=== PATIENT | male | born 1950 | race Two or more races ===

== ENCOUNTER 2018-02-25 07:56 | Inpatient (IN) | payer MEDICARE, MEDICAID ==
[~2018-02-25] VITALS: Ht 182.9 cm; Wt 87.1 kg
[2018-02-25] MEDS ORDERED: Sodium Chloride 500ML 500 ML IV ONE (08:03)
[2018-02-25] MEDS ORDERED: AMIODARONE HCL200 MG ORAL (08:05)
[2018-02-25] MEDS ORDERED: ELIQUIS2.5 MG PO (08:05)
[2018-02-25] MEDS ORDERED: ASPIR 8181 MG ORAL (08:13)
[2018-02-25] MEDS ORDERED: SENNA8.6 M2 PO (08:13)
[2018-02-25] MEDS ORDERED: BUMETANIDE2 MG ORAL (08:13)
[2018-02-25] MEDS ORDERED: SEROQUEL50 MG ORAL (08:13)
[2018-02-25] MEDS ORDERED: BUPROPION HCL100 M1 ORAL (08:13)
[2018-02-25] MEDS ORDERED: POLYETHYLENE GL17 GM ORAL (08:13)
[2018-02-25] MEDS ORDERED: GABAPENTIN300 MG ORAL (08:13)
[2018-02-25] MEDS ORDERED: ISOSORBIDE MONO20 MG PO (08:13)
[2018-02-25] MEDS ORDERED: ZAROXOLYN2.5 MG ORAL (08:13)
[2018-02-25] MEDS ORDERED: LIPITOR80 MG ORAL (08:13)
[2018-02-25] MEDS ORDERED: JANUVIA25 MG ORAL (08:13)
[2018-02-25] MEDS ORDERED: SEROQUEL25 MG ORAL (08:13)
[2018-02-25] MEDS ORDERED: CARVEDILOL25 MG ORAL (08:13)
[2018-02-25] MEDS ORDERED: CLOPIDOGREL75 MG ORAL (08:13)
[2018-02-25] MEDS ORDERED: BREO ELLIPTA 11 EACH IH (08:14)
[2018-02-25 08:32] LABS: BASOPHILS % (AUTO) 0.6 % (0.0-2.0); EOSINOPHILS % (AUTO) 0.8 % (0.0-3.0); HEMATOCRIT 40.7 % (42.0-52.0); HEMOGLOBIN 13.1 G/DL (14.2-18.0); LYMPHOCYTES % (AUTO) 5.8 % (20.0-45.0); MEAN CORPUSCULAR VOLUME 80 FL (80-99); MONOCYTES % (AUTO) 10.4 % (1.0-10.0); NEUTROPHILS % (AUTO) 82.5 % (45.0-75.0); PLATELET COUNT 248 K/UL (150-450); RED BLOOD COUNT 5.07 M/UL (4.70-6.10); RED CELL DISTRIBUTION WIDTH 16.7 % (11.6-14.8); WHITE BLOOD COUNT 15.8 K/UL (4.8-10.8)
[2018-02-25 08:38] LABS: ANION GAP 11 mmol/L (5-15); BLOOD UREA NITROGEN 87 mg/dL (7-18); CALCIUM 9.7 MG/DL (8.5-10.1); CARBON DIOXIDE 32 MMOL/L (21-32); CHLORIDE 96 MMOL/L (98-107); CREATININE 3.4 MG/DL (0.55-1.30); POTASSIUM 3.3 MMOL/L (3.5-5.1); SODIUM 139 MMOL/L (136-145)
[2018-02-25 08:40] LABS: INR 1.3 (0.9-1.1)
[2018-02-25 08:44] VITALS: BP 112/64
[2018-02-25 08:51] LABS: ALANINE AMINOTRANSFERASE 32 U/L (12-78); ALBUMIN 3.2 G/DL (3.4-5.0); ALBUMIN/GLOBULIN RATIO 0.6 (1.0-2.7); ALKALINE PHOSPHATASE 132 U/L (46-116); ASPARTATE AMINO TRANSFERASE 24 U/L (15-37); CKMB 0.8 NG/ML (0.0-3.6); CREATINE KINASE 55 U/L (26-308)
[2018-02-25 08:57] LABS: BILIRUBIN,DIRECT 0.4 MG/DL (0.0-0.3)
[2018-02-25 09:06] LABS: APPEARANCE,URINE CLOUDY; BILIRUBIN, URINE NEGATIVE (NEGATIVE); GLUCOSE, URINE (UA) NEGATIVE (NEGATIVE); KETONES,URINE 1+ (NEGATIVE); LEUKOCYTE ESTERASE ,URINE 1+ (NEGATIVE); NITRITE,URINE NEGATIVE (NEGATIVE); PH,URINE 6.5 (4.5-8.0); PROTEIN,URINE 4+ (NEGATIVE); UROBILINOGEN,URINE NORMAL MG/DL (0.0-1.0)
[2018-02-25 09:13] LABS: COLOR,URINE RED
[2018-02-25] MEDS ORDERED: cefTRIAXone 1 GM in NS 55 ML IVPB ONE (09:15)
[2018-02-25 09:29] VITALS: BP 117/88
--- NOTE | 2018-02-25 09:29 | Emergency Room Report ---
History of Present Illness General Chief Complaint: Altered Level of Consciousness Source: Patient, Medical Record, EMS Present Illness HPI Patient presents from nursing facility with reports of increased lethargy and weakness he was also now witnessed to have increased hematuria Patient himself is sluggish to respond Poor historian There was no reports of vomiting or diarrhea Patient denies any chest pain Unknown regarding fevers There was no reports of any recent rash There was no reports of any recent fall or trauma Allergies: Coded Allergies: No Known Allergies (Unverified , 02/25/18) Patient History Limited by: medical condition Past Medical History: see triage record Pertinent Family History: unable to obtain Reviewed Nursing Documentation: PMH: Agreed; PSxH: Agreed Nursing Documentation-PMH Hx Cardiac Problems: Yes - Left ventricular dysfunction, ICD, CAD Hx Hypertension: Yes History Of Psychiatric Problem: Yes - Mood disorder, anxiety Review of Systems All Other Systems: negative except mentioned in HPI Physical Exam Vital Signs Date Time Temp Pulse Resp B/P (MAP) Pulse Ox O2 Delivery O2 Flow Rate FiO2 02/25/18 07:52 97.0 91 18 111/63 96 Nasal Cannula 4.0 02/25/18 08:43 100 Sp02 EP Interpretation: reviewed, normal General Appearance: no apparent distress Head: normocephalic, atraumatic Eyes: bilateral eye PERRL, bilateral eye EOMI ENT: normal pharynx, no angioedema Neck: supple Respiratory: crackles - Both lower lobes Cardiovascular #1: regular rate, rhythm Gastrointestinal: non tender, soft Musculoskeletal: other - Moves both upper extremities without focal deficit Neurologic: responsive - To verbal and physical stimuli Skin: other - Several skin breakdowns Lymphatic: no adenopathy Medical Decision Making Diagnostic Impression: Primary Impression: Encephalopathy Additional Impressions: UTI (urinary tract infection) Dehydration Leukocytosis ER Course Given the history and presentation multiple differentials considered Including but not limited to neurological, neurosurgical, infectious pathology Patient's white blood cell count is elevated CT imaging shows nonspecific findings with questionable infection CT head did not show any acute disease patient provided with broad-spectrum antibiotics and requires further inpatient care Labs Test 02/25/18 08:10 White Blood Count 15.8 K/UL (4.8-10.8) Red Blood Count 5.07 M/UL (4.70-6.10) Hemoglobin 13.1 G/DL (14.2-18.0) Hematocrit 40.7 % (42.0-52.0) Mean Corpuscular Volume 80 FL (80-99) Mean Corpuscular Hemoglobin 25.8 PG (27.0-31.0) Mean Corpuscular Hemoglobin Concent 32.1 G/DL (32.0-36.0) Red Cell Distribution Width 16.7 % (11.6-14.8) Platelet Count 248 K/UL (150-450) Mean Platelet Volume 8.0 FL (6.5-10.1) Neutrophils (%) (Auto) 82.5 % (45.0-75.0) Lymphocytes (%) (Auto) 5.8 % (20.0-45.0) Monocytes (%) (Auto) 10.4 % (1.0-10.0) Eosinophils (%) (Auto) 0.8 % (0.0-3.0) Basophils (%) (Auto) 0.6 % (0.0-2.0) Prothrombin Time 13.2 SEC (9.30-11.50) Prothromb Time International Ratio 1.3 (0.9-1.1) Activated Partial Thromboplast Time 30 SEC (23-33) Urine Color Red Urine Appearance Cloudy Urine pH 6.5 (4.5-8.0) Urine Specific [place] 1.010 (1.005-1.035) Urine Protein 4+ (NEGATIVE) Urine Glucose (UA) Negative (NEGATIVE) Urine Ketones 1+ (NEGATIVE) Urine Blood 5+ (NEGATIVE) Urine Nitrite Negative (NEGATIVE) Urine Bilirubin Negative (NEGATIVE) Urine Urobilinogen Normal MG/DL (0.0-1.0) Urine Leukocyte Esterase 1+ (NEGATIVE) Urine RBC Tntc /HPF (0 - 0) Urine WBC 5-10 /HPF (0 - 0) Urine Squamous Epithelial Cells Occasional /LPF Urine Bacteria Few /HPF (NONE) Sodium Level 139 MMOL/L (136-145) Potassium Level 3.3 MMOL/L (3.5-5.1) Chloride Level 96 MMOL/L (98-107) Carbon Dioxide Level 32 MMOL/L (21-32) Anion Gap 11 mmol/L (5-15) Blood Urea Nitrogen 87 mg/dL (7-18) Creatinine 3.4 MG/DL (0.55-1.30) Estimat Glomerular Filtration Rate 18.1 mL/min (>60) Glucose Level 277 MG/DL (74-106) Calcium Level 9.7 MG/DL (8.5-10.1) Total Bilirubin 2.0 MG/DL (0.2-1.0) Direct Bilirubin 0.4 MG/DL (0.0-0.3) Aspartate Amino Transf (AST/SGOT) 24 U/L (15-37) Alanine Aminotransferase (ALT/SGPT) 32 U/L (12-78) Alkaline Phosphatase 132 U/L (46-116) Total Creatine Kinase 55 U/L (26-308) Creatine Kinase MB 0.8 NG/ML (0.0-3.6) Creatine Kinase MB Relative Index 1.4 Troponin I 0.013 ng/mL (0.000-0.056) Total Protein 9.0 G/DL (6.4-8.2) Albumin 3.2 G/DL (3.4-5.0) Globulin 5.8 g/dL Albumin/Globulin Ratio 0.6 (1.0-2.7) Rhythm Strip Diag. Results EP Interpretation: yes Rate: 77 Rhythm: NSR, no PVC's, no ectopy Chest X-Ray Diagnostic Results Chest X-Ray Diagnostic Results : Chest X-Ray Ordered: Yes # of Views/Limited/Complete: 1 View Indication: Chest Pain Interpretation: no consolidation, no effusion, no pneumothorax Impression: No acute disease Electronically Signed by: Iveth Pitt DO CT/MRI/US Diagnostic Results CT/MRI/US Diagnostic Results : Impression cT abdomen pelvisImpression: Limited assessment of the GI tract, due to lack of enteric contrast administration Mild to moderate rectal distention by stool, could indicate rectal fecal impaction. There is some rectal wall thickening and presacral edema which could indicate stercoral colitis High attenuation material within the bladder lumen likely indicates blood given stated clinical history of hematuria. No definite renal or ureteral abnormality to indicate source of such. Prostatomegaly Incidental finding right lower pole renal lesion, too small to characterize, most likely benign simple cortical cyst. Borderline splenomegaly Cardiomegaly Colonic diverticulosis. No evidence of diverticulitis Other findings as noted, including degenerative spondylosis, compressive pulmonary atelectatic changes, coronary artery calcifications, pacemaker, likely mitral valve prosthetic device CT head: no acute disease Last Vital Signs Date Time Temp Pulse Resp B/P (MAP) Pulse Ox O2 Delivery O2 Flow Rate FiO2 02/25/18 08:44 97.0 91 22 112/64 99 Nasal Cannula 4.0 02/25/18 08:43 100 Status: improved Disposition: ADMITTED INPATIENT Condition: Serious Referrals: Sebastian Zimmerman MD (PCP) Iveth Pitt DO Feb 25, 2018 09:29
--- NOTE | 2018-02-25 10:12 | Diagnostic Imaging Report ---
Indications: Altered level of consciousness Technique: Spiral acquisitions obtained through the brain. Angled axial and coronal 5 x 5 mm slices were reconstructed. Total dose length product 1502 mGycm. CTDI vol(s) 70 mGy. Dose reduction achieved using automated exposure control Comparison: None. Findings: There is age-related enlargement of the ventricles and extra axial CSF spaces. There is mild periventricular deep white matter low-attenuation consistent with chronic ischemic change. Old lacunar infarct is seen in the left anterior frontal deep white matter. Old lacunar infarcts are also seen in the left cerebellar hemisphere and in the bilateral basal ganglia. Normal shell-white differentiation otherwise. No acute hemorrhage nor edema. No mass effect nor midline shift. The calvarium is intact. The mastoids are clear. The sinuses are clear. The visualized orbits are unremarkable. Impression: Chronic and age-related changes, as described Multiple old lacunar infarcts, as described Negative for acute intracranial bleed or mass effect The CT scanner at [facility] is accredited by the [employer] and the scans are performed using protocols designed to limit radiation exposure to as low as reasonably achievable to attain images of sufficient resolution adequate for diagnostic evaluation.
--- NOTE | 2018-02-25 10:12 | Diagnostic Imaging Report ---
Indication: Abdominal pain, hematuria Technique: Spiral acquisitions obtained through the abdomen and pelvis. No oral contrast utilized, per emergency room physician request No IV contrast utilized, per emergency room physician request.. Multiplanar reconstructions were generated. Total dose length product 1169 mGycm. CTDIvol(s) 18 mGy. Dose reduction achieved using automated exposure control Comparison: None Findings: Lack of enteric contrast limits assessment of the GI tract. The appendix is normal. There is colonic diverticulosis. No evidence of diverticulitis. There is mild distention of the rectum by feces. There is equivocal mild wall thickening of the rectal wall and there is some presacral soft tissue edema. No small bowel distention. No free or loculated intraperitoneal gas or fluid is evident. The distal esophagus, stomach, duodenum are unremarkable. Lack of IV contrast limits assessment of the solid organs. The liver, gallbladder, bile ducts, pancreas are all unremarkable. The spleen is borderline enlarged, measuring 13.4 cm long axis dimension. The adrenals are somewhat bulky and lobulated but no discrete mass demonstrated. The kidneys demonstrate considerable bilateral perinephric fat stranding. The contours are markedly lobulated, particularly the left. A subcentimeter low-attenuation lesion is seen in the lower pole some of the right kidney. No renal or ureteral calculi, hydronephrosis, or hydroureter. No retroperitoneal or mesenteric mass or adenopathy. No pelvic mass or adenopathy. The bladder is empty, contains a Salinas catheter. There is some dense material surrounding the Salinas balloon which appears to be within the bladder lumen and could represent a small amount of blood. The prostate is markedly enlarged, measuring 5.7 cm AP by 6.9 cm transverse by 6.6 cm craniocaudad. The heart is enlarged. Pacemaker wires are demonstrated. Metallic density at the level of the mitral valve is presumably prosthetic in nature. There are also extensive coronary artery calcifications. The lung bases demonstrate compressive atelectatic changes. The bones demonstrate mild degenerative spondylosis changes. Impression: Limited assessment of the GI tract, due to lack of enteric contrast administration Mild to moderate rectal distention by stool, could indicate rectal fecal impaction. There is some rectal wall thickening and presacral edema which could indicate stercoral colitis High attenuation material within the bladder lumen likely indicates blood given stated clinical history of hematuria. No definite renal or ureteral abnormality to indicate source of such. Prostatomegaly Incidental finding right lower pole renal lesion, too small to characterize, most likely benign simple cortical cyst. Borderline splenomegaly Cardiomegaly Colonic diverticulosis. No evidence of diverticulitis Other findings as noted, including degenerative spondylosis, compressive pulmonary atelectatic changes, coronary artery calcifications, pacemaker, likely mitral valve prosthetic device The CT scanner at [facility] is accredited by the [employer] and the scans are performed using protocols designed to limit radiation exposure to as low as reasonably achievable to attain images of sufficient resolution adequate for diagnostic evaluation.
[2018-02-25 10:19] VITALS: BP 121/81
[2018-02-25] MEDS ORDERED: Haloperidol 5mg/ml Inj IM SCH (10:43)
[2018-02-25] MEDS ORDERED: LORazepam Inj 2mg/ml 1ml IM SCH (10:44)
[2018-02-25] MEDS ORDERED: DiphenhydrAMINE 50mg/ml Inj IM SCH (10:44)
[2018-02-25] MEDS ORDERED: Haloperidol 5mg/ml Inj IM PRN ×2 (10:45→16:45)
--- NOTE | 2018-02-25 12:01 | Diagnostic Imaging Report ---
Indication: Chest pain Technique: One view of the chest Comparison: none Findings: Heart is enlarged. There is a left chest AICD. The lungs and pleural spaces are clear. There is evidence of prior CABG. Impression: No acute process
--- NOTE | 2018-02-25 12:47 | History & Physical ---
History and Physical History & Physicial dictated [id number] Sebastian Zimmerman MD Feb 25, 2018 12:47
--- NOTE | 2018-02-25 12:52 | Consultation ---
History of Present Illness General Date patient seen: Feb 25, 2018 Chief Complaint: Altered Level of Consciousness Present Illness HPI 67-year-old male, who has mmp who was admitted for ams. the pt was agitated and confused. the pt is having waxing and waning of consciousness. the pt was agitated and was attempting to come out of bed. the pt was cognitively impairment and was unable to provide hx. Allergies: Coded Allergies: No Known Allergies (Unverified , 02/25/18) Medication History Scheduled Amiodarone Hcl* (Cordarone*), 200 MG ORAL DAILY, (Reported) Apixaban (Eliquis), 2.5 MG PO BID, (Reported) Aspirin* (Aspir 81*), 81 MG ORAL DAILY, (Reported) Atorvastatin (Lipitor), 80 MG ORAL BEDTIME, (Reported) Bumetanide* (Bumetanide*), 2 MG ORAL BID, (Reported) Bupropion Sr* (Bupropion Sr*), 150 MG ORAL BEDTIME, (Reported) Carvedilol* (Carvedilol*), 25 MG ORAL EVERY 12 HOURS, (Reported) Clopidogrel* (Clopidogrel*), 75 MG ORAL DAILY, (Reported) Fluticasone/Vilanterol (Breo Ellipta 100-25 Mcg INH), 1 EACH IH DAILY, (Reported ) Gabapentin* (Gabapentin*), 300 MG ORAL BEDTIME, (Reported) Isosorbide Mononitrate (Isosorbide Mononitrate), 30 MG PO DAILY, (Reported) Metolazone (Metolazone), 2.5 MG ORAL DAILY, (Reported) Polyethylene Glycol 3350* (Polyethylene Glycol 3350*), 17 GM ORAL DAILY, ( Reported) Quetiapine Fumarate (Seroquel), 25 MG ORAL BEDTIME, (Reported) Sennosides (Senna), 8.6 MG PO BEDTIME, (Reported) Sitagliptin* (Januvia*), 50 MG ORAL DAILY, (Reported) Scheduled PRN Quetiapine Fumarate* (Seroquel*), 12.5 MG ORAL TWICE A DAY PRN for Agitation, ( Reported) Patient History Limited by: medical condition History Provided By: Medical Record, PMD Healthcare decision maker ANIA MUNOZ Resuscitation status Advanced Directive on File No Past Medical/Surgical History Past Medical/Surgical History: (1) Dehydration (2) Leukocytosis (3) UTI (urinary tract infection) (4) Encephalopathy Review of Systems Psychiatric: Reports: prior hx, anxiety, hallucinations Physical Exam General Appearance: alert, confused, moderate distress, agitated, combative Last 24 Hour Vital Signs Date Time Temp Pulse Resp B/P (MAP) Pulse Ox O2 Delivery O2 Flow Rate FiO2 02/25/18 10:19 98.0 68 18 121/81 (94) 98 02/25/18 09:50 98.0 99 18 117/88 99 Nasal Cannula 4.0 100 02/25/18 09:29 98.0 99 18 117/88 99 Nasal Cannula 4.0 100 02/25/18 08:44 97.0 91 22 112/64 99 Nasal Cannula 4.0 02/25/18 08:43 91 24 Nasal Cannula 4.0 100 02/25/18 07:52 97.0 91 18 111/63 96 Nasal Cannula 4.0 Laboratory Tests Test 02/25/18 08:10 White Blood Count 15.8 K/UL (4.8-10.8) H Red Blood Count 5.07 M/UL (4.70-6.10) Hemoglobin 13.1 G/DL (14.2-18.0) L Hematocrit 40.7 % (42.0-52.0) L Mean Corpuscular Volume 80 FL (80-99) Mean Corpuscular Hemoglobin 25.8 PG (27.0-31.0) L Mean Corpuscular Hemoglobin Concent 32.1 G/DL (32.0-36.0) Red Cell Distribution Width 16.7 % (11.6-14.8) H Platelet Count 248 K/UL (150-450) Mean Platelet Volume 8.0 FL (6.5-10.1) Neutrophils (%) (Auto) 82.5 % (45.0-75.0) H Lymphocytes (%) (Auto) 5.8 % (20.0-45.0) L Monocytes (%) (Auto) 10.4 % (1.0-10.0) H Eosinophils (%) (Auto) 0.8 % (0.0-3.0) Basophils (%) (Auto) 0.6 % (0.0-2.0) Prothrombin Time 13.2 SEC (9.30-11.50) H Prothromb Time International Ratio 1.3 (0.9-1.1) H Activated Partial Thromboplast Time 30 SEC (23-33) Urine Color Red Urine Appearance Cloudy Urine pH 6.5 (4.5-8.0) Urine Specific [place] 1.010 (1.005-1.035) Urine Protein 4+ (NEGATIVE) H Urine Glucose (UA) Negative (NEGATIVE) Urine Ketones 1+ (NEGATIVE) H Urine Blood 5+ (NEGATIVE) H Urine Nitrite Negative (NEGATIVE) Urine Bilirubin Negative (NEGATIVE) Urine Urobilinogen Normal MG/DL (0.0-1.0) Urine Leukocyte Esterase 1+ (NEGATIVE) H Urine RBC Tntc /HPF (0 - 0) H Urine WBC 5-10 /HPF (0 - 0) H Urine Squamous Epithelial Cells Occasional /LPF Urine Bacteria Few /HPF (NONE) Sodium Level 139 MMOL/L (136-145) Potassium Level 3.3 MMOL/L (3.5-5.1) L Chloride Level 96 MMOL/L (98-107) L Carbon Dioxide Level 32 MMOL/L (21-32) Anion Gap 11 mmol/L (5-15) Blood Urea Nitrogen 87 mg/dL (7-18) H Creatinine 3.4 MG/DL (0.55-1.30) H Estimat Glomerular Filtration Rate 18.1 mL/min (>60) Glucose Level 277 MG/DL (74-106) H Calcium Level 9.7 MG/DL (8.5-10.1) Total Bilirubin 2.0 MG/DL (0.2-1.0) H Direct Bilirubin 0.4 MG/DL (0.0-0.3) H Aspartate Amino Transf (AST/SGOT) 24 U/L (15-37) Alanine Aminotransferase (ALT/SGPT) 32 U/L (12-78) Alkaline Phosphatase 132 U/L (46-116) H Total Creatine Kinase 55 U/L (26-308) Creatine Kinase MB 0.8 NG/ML (0.0-3.6) Creatine Kinase MB Relative Index 1.4 Troponin I 0.013 ng/mL (0.000-0.056) Total Protein 9.0 G/DL (6.4-8.2) H Albumin 3.2 G/DL (3.4-5.0) L Globulin 5.8 g/dL Albumin/Globulin Ratio 0.6 (1.0-2.7) L Height (Feet): 6 Weight (Pounds): 170 Medications Current Medications Medications (Trade) Dose Ordered Sig/Jessica Route PRN Reason Start Time Stop Time Status Last Admin Dose Admin Amiodarone HCl (Cordarone) 200 mg DAILY ORAL 02/26/18 09:00 03/28/18 08:59 Aspirin (Ecotrin) 81 mg DAILY ORAL 02/26/18 09:00 03/28/18 08:59 Atorvastatin Calcium (Lipitor) 80 mg BEDTIME ORAL 02/25/18 21:00 03/27/18 20:59 Bupropion HCl (Wellbutrin SR) 150 mg BEDTIME ORAL 02/25/18 21:00 03/27/18 20:59 Carvedilol (Coreg) 25 mg EVERY 12 HOURS ORAL 02/25/18 21:00 03/27/18 20:59 Clopidogrel Bisulfate (Plavix) 75 mg DAILY ORAL 02/26/18 09:00 03/28/18 08:59 Dextrose (Dextrose 50%) 25 ml Q30M PRN IV Hypoglycemia 02/25/18 13:00 03/27/18 12:59 Dextrose (Dextrose 50%) 50 ml Q30M PRN IV Hypoglycemia 02/25/18 13:00 03/27/18 12:59 Fluticasone/ Vilanterol (Breo Ellipta 100/25) 1 puff DAILY INH 02/26/18 09:00 03/28/18 08:59 Gabapentin (Neurontin) 300 mg BEDTIME ORAL 02/25/18 21:00 03/27/18 20:59 Haloperidol Lactate (Haldol) 5 mg Q6H PRN IM Agitation 02/25/18 10:45 03/27/18 10:44 Insulin Aspart (NovoLOG) BEFORE MEALS AND HS SUBQ 02/25/18 16:30 03/27/18 16:29 Polyethylene Glycol (Miralax) 17 gm DAILY ORAL 02/26/18 09:00 03/28/18 08:59 Sitagliptin Phosphate (Januvia) 25 mg DAILY ORAL 02/26/18 09:00 03/28/18 08:59 Assessment/Plan Problem List: (1) Encephalopathy ICD Codes: G93.40 - Encephalopathy, unspecified SNOMED: [id number] Assessment/Plan the pt received a cocktail Seroquel 25mg qhs Seroquel Dwight Moreno MD Feb 25, 2018 12:51
--- NOTE | 2018-02-25 13:15 | Consultation ---
Consult Note Assessment/Plan Renal consult dictated # [id number] Isacc Ryder MD Feb 25, 2018 13:15
--- NOTE | 2018-02-25 15:43 | Infectious Diseases Prog Note ---
Assessment/Plan Assessment/Plan Full consult dictated: A) 1) sepsis, ams, leukocytosis 2) uti, + ua 3) chest x-ray - negative 4) allergies - nkda 5) pmh noted P) 1) zosyn and doxycycline 2) check labs, cultures and f/u chest x-ray 3) thank you Subjective Allergies: Coded Allergies: No Known Allergies (Unverified , 02/25/18) Objective Vital Signs Last 24 Hour Vital Signs Date Time Temp Pulse Resp B/P (MAP) Pulse Ox O2 Delivery O2 Flow Rate FiO2 02/25/18 13:43 Nasal Cannula 2.0 02/25/18 10:19 98.0 68 18 121/81 (94) 98 02/25/18 09:50 98.0 99 18 117/88 99 Nasal Cannula 4.0 100 02/25/18 09:29 98.0 99 18 117/88 99 Nasal Cannula 4.0 100 02/25/18 08:44 97.0 91 22 112/64 99 Nasal Cannula 4.0 02/25/18 08:43 91 24 Nasal Cannula 4.0 100 02/25/18 07:52 97.0 91 18 111/63 96 Nasal Cannula 4.0 Height (Feet): 6 Height (Inches): 0.00 Weight (Pounds): 170 Laboratory Tests Test 02/25/18 08:10 White Blood Count 15.8 K/UL (4.8-10.8) H Red Blood Count 5.07 M/UL (4.70-6.10) Hemoglobin 13.1 G/DL (14.2-18.0) L Hematocrit 40.7 % (42.0-52.0) L Mean Corpuscular Volume 80 FL (80-99) Mean Corpuscular Hemoglobin 25.8 PG (27.0-31.0) L Mean Corpuscular Hemoglobin Concent 32.1 G/DL (32.0-36.0) Red Cell Distribution Width 16.7 % (11.6-14.8) H Platelet Count 248 K/UL (150-450) Mean Platelet Volume 8.0 FL (6.5-10.1) Neutrophils (%) (Auto) 82.5 % (45.0-75.0) H Lymphocytes (%) (Auto) 5.8 % (20.0-45.0) L Monocytes (%) (Auto) 10.4 % (1.0-10.0) H Eosinophils (%) (Auto) 0.8 % (0.0-3.0) Basophils (%) (Auto) 0.6 % (0.0-2.0) Prothrombin Time 13.2 SEC (9.30-11.50) H Prothromb Time International Ratio 1.3 (0.9-1.1) H Activated Partial Thromboplast Time 30 SEC (23-33) Urine Color Red Urine Appearance Cloudy Urine pH 6.5 (4.5-8.0) Urine Specific [place] 1.010 (1.005-1.035) Urine Protein 4+ (NEGATIVE) H Urine Glucose (UA) Negative (NEGATIVE) Urine Ketones 1+ (NEGATIVE) H Urine Blood 5+ (NEGATIVE) H Urine Nitrite Negative (NEGATIVE) Urine Bilirubin Negative (NEGATIVE) Urine Urobilinogen Normal MG/DL (0.0-1.0) Urine Leukocyte Esterase 1+ (NEGATIVE) H Urine RBC Tntc /HPF (0 - 0) H Urine WBC 5-10 /HPF (0 - 0) H Urine Squamous Epithelial Cells Occasional /LPF Urine Bacteria Few /HPF (NONE) Sodium Level 139 MMOL/L (136-145) Potassium Level 3.3 MMOL/L (3.5-5.1) L Chloride Level 96 MMOL/L (98-107) L Carbon Dioxide Level 32 MMOL/L (21-32) Anion Gap 11 mmol/L (5-15) Blood Urea Nitrogen 87 mg/dL (7-18) H Creatinine 3.4 MG/DL (0.55-1.30) H Estimat Glomerular Filtration Rate 18.1 mL/min (>60) Glucose Level 277 MG/DL (74-106) H Calcium Level 9.7 MG/DL (8.5-10.1) Total Bilirubin 2.0 MG/DL (0.2-1.0) H Direct Bilirubin 0.4 MG/DL (0.0-0.3) H Aspartate Amino Transf (AST/SGOT) 24 U/L (15-37) Alanine Aminotransferase (ALT/SGPT) 32 U/L (12-78) Alkaline Phosphatase 132 U/L (46-116) H Total Creatine Kinase 55 U/L (26-308) Creatine Kinase MB 0.8 NG/ML (0.0-3.6) Creatine Kinase MB Relative Index 1.4 Troponin I 0.013 ng/mL (0.000-0.056) Total Protein 9.0 G/DL (6.4-8.2) H Albumin 3.2 G/DL (3.4-5.0) L Globulin 5.8 g/dL Albumin/Globulin Ratio 0.6 (1.0-2.7) L Current Medications Medications (Trade) Dose Ordered Sig/Jessica Route PRN Reason Start Time Stop Time Status Last Admin Dose Admin Amiodarone HCl (Cordarone) 200 mg DAILY ORAL 02/26/18 09:00 03/28/18 08:59 Atorvastatin Calcium (Lipitor) 80 mg BEDTIME ORAL 02/25/18 21:00 03/27/18 20:59 Bupropion HCl (Wellbutrin SR) 150 mg BEDTIME ORAL 02/25/18 21:00 03/27/18 20:59 Carvedilol (Coreg) 25 mg EVERY 12 HOURS ORAL 02/25/18 21:00 03/27/18 20:59 Dextrose (Dextrose 50%) 25 ml Q30M PRN IV Hypoglycemia 02/25/18 13:00 03/27/18 12:59 Dextrose (Dextrose 50%) 50 ml Q30M PRN IV Hypoglycemia 02/25/18 13:00 03/27/18 12:59 Fluticasone/ Vilanterol (Breo Ellipta 100/25) 1 puff DAILY INH 02/26/18 09:00 03/28/18 08:59 Gabapentin (Neurontin) 300 mg BEDTIME ORAL 02/25/18 21:00 03/27/18 20:59 Haloperidol Lactate (Haldol) 5 mg Q6H PRN IM Agitation 02/25/18 10:45 03/27/18 10:44 Insulin Aspart (NovoLOG) BEFORE MEALS AND HS SUBQ 02/25/18 16:30 03/27/18 16:29 Piperacillin Sod/ Tazobactam Sod 3.375 gm/Dextrose 100 ml @ 25 mls/hr EVERY 12 HOURS IVPB 02/25/18 21:00 03/02/18 20:59 UNV Polyethylene Glycol (Miralax) 17 gm DAILY ORAL 02/26/18 09:00 03/28/18 08:59 Sitagliptin Phosphate (Januvia) 25 mg DAILY ORAL 02/26/18 09:00 03/28/18 08:59 Edith Jeffery MD Feb 25, 2018 15:43
[2018-02-25 16:00] VITALS: BP 102/65
[2018-02-25] MEDS ORDERED: NovoLOG Insulin Flexpen SUBQ SCH (16:30)
--- NOTE | 2018-02-25 16:37 | Diagnostic Imaging Report ---
Indication: Acute renal failure Technique: Grayscale and duplex images of the kidneys, retroperitoneum, and bladder were obtained. Comparison: Abdomen pelvis CT 02/25/2018 Findings: Exam is limited. Patient was reportedly difficult to scan due to restlessness Right kidney measures 11.2 cm in length. Left kidney measures 11 cm in length. Both kidneys demonstrate normal echogenicity. Both kidneys demonstrate contour lobulation. There is what appears to be an echogenic focus in the lower pole of the right kidney. There is a nonspecific low-attenuation area in the right kidney at the same location, so this could represent a small angiomyolipoma. No hydronephrosis. No other focal abnormality.. Nonvisualized inferior vena cava. Bladder contains a Salinas catheter. Bladder volume calculated at 190 mL despite Salinas catheter. Debris, presumably blood, is seen within the bladder lumen. The prostate is markedly enlarged, calculated volume of 111 mL. Impression: Somewhat limited exam, as described. 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 Debris, likely blood, within the bladder lumen, given known history of hematuria and recent findings on CT Marked prostatomegaly 190 mL urinary bladder volume despite the presence of a Salinas catheter
[2018-02-25] MEDS: NovoLOG Insulin Flexpen SUBQ SCH ×2 (17:57→23:04)
[2018-02-25] MEDS ORDERED: Eliquis 2.5mg tablet ORAL SCH (18:00)
[2018-02-25 20:00] VITALS: BP_SYST 103; BP_SYST 141; BP_DIAS 60; BP_DIAS 79
--- NOTE | 2018-02-25 20:00 | Consultation ---
DATE OF CONSULTATION: 02/25/2018 NEPHROLOGY CONSULTATION CONSULTING PHYSICIAN: Isacc Ryder M.D. REFERRING PHYSICIAN: Sebastian Zimmerman M.D. REASON FOR CONSULTATION: Acute renal failure. HISTORY OF PRESENT ILLNESS: This is a 67-year-old male, who is unable to provide any history. I was asked to see him for his renal failure. His BUN and creatinine are 87 and 3.4 as of today. The patient has history of chronic kidney disease, and followed by Dr. Hurd at [facility]. The patient was admitted for increased lethargy and weakness. He has also history of severe cardiomyopathy, ejection fraction about 11% per Dr. Zimmerman. PAST MEDICAL HISTORY: History of coronary disease, ICD placement, history of hypertension, mood disorder, and anxiety. MEDICATIONS: Reviewed in the EMR. SOCIAL HISTORY: Unobtainable. ALLERGIES: No known drug allergies. REVIEW OF SYSTEMS: Unobtainable. PHYSICAL EXAMINATION: GENERAL: The patient is a 67-year-old male, nonverbal at this point although he is awake. VITAL SIGNS: Blood pressure 121/81, pulse 68, temperature 98 degrees, and respirations 18. HEENT: Somewhat pale conjunctivae. Anicteric sclerae. NECK: Supple. LUNGS: Clear to auscultation. HEART: S1 and S2 without murmurs or rubs. ABDOMEN: Soft and nontender. EXTREMITIES: No cyanosis or edema. LABORATORY FINDINGS: Chemistry panel shows serum sodium 139, potassium 3.3, chloride 96, BUN is 87, creatinine 3.4, glucose 277, and albumin is 3.2. CBC shows a WBC of 15,800, hematocrit is 40.7, hemoglobin is 13.1, and platelets 248,000. UA shows too numerous to count RBCs and 5 to 10 WBCs per high-power field with 4+ protein. ASSESSMENT: This is a 67-year-old male who was admitted with change in mental status and acute encephalopathy. He has acute renal failure on top of chronic kidney disease. His acute renal failure may be from prerenal azotemia. Other cardiorenal syndrome cannot be completely excluded. Other possibility such obstruction less likely needs to be ruled out. The patient has some tremors, may be from the Salinas catheter. PLAN: I would hydrate the patient gently. Urine sodium and urine creatinine will be ordered to calculate the fractional excretion of sodium. The patient's renal ultrasound will be obtained to make sure the patient has renal obstruction, also to record the echogenicity of the kidneys. Further recommendations will be made based on those results. Thank you very much, Dr. Zimmerman for this consultation. Isacc Ryder M.D. DR: TALA JOB#: [id number] CC:
--- NOTE | 2018-02-25 20:45 | History and Physical Report ---
DATE OF ADMISSION: 02/25/2018 REASON FOR ADMISSION: Altered mental status and severe hematuria with recent falls. HISTORY OF PRESENT ILLNESS: This is an unfortunate 67-year-old male with history of CHF with ejection fraction of 11%, coronary artery disease, status post CABG, status post defibrillator, hypertension, uncontrolled diabetes, CKD stage 4, recent NSTEMI, status post cardiac catheterization on 11/29/2017 with PCI and stent of ostium, circumflex stenosis, who was brought in by ambulance for altered mental status. The patient has been very confused over the last few days and [facility]. He has had hallucinations. He was recently seen by Psychiatry and started on Depakote for mood disorder. The patient is on Bumex and metolazone for CHF and has not been eating or drinking much. His creatinine is elevated at 3.4 with baseline creatinine of 2.2 to 2.4 on recent discharge from [facility]. His BUN is at 87. He has a Salinas with severe gross hematuria. REVIEW OF SYSTEMS: Twelve-point review of systems is not obtainable because of the patient's confusion. PAST MEDICAL HISTORY: Includes CHF with ejection fraction of 11%, status post AICD, toxic metabolic encephalopathy, coronary artery disease, history of NSTEMI, history of CABG, hypertension, paroxysmal atrial fibrillation, hyperlipidemia, CKD with baseline creatinine of 2.2 to 2.4, diabetes type 2, congestive hepatopathy, major depressive disorder, mood disorder, gout. PAST SURGICAL HISTORY: None. SOCIAL HISTORY: The patient is currently residing at [facility] facility, [facility]. He does not smoke, drink alcohol, or use any drugs. He has a conservator named Haseeb. MEDICATIONS: Reviewed in [facility]. ALLERGIES: No known drug allergies. PHYSICAL EXAMINATION: VITAL SIGNS: Temperature is 98, pulse is 68, respiratory rate 18, blood pressure 121/81, O2 saturation is 98%. GENERAL: The patient to very confused. He is alert, awake, and oriented x0. He is awake. He does not know where he is nor does he knows name. LABORATORY DATA: CBC, white count 15.8, hemoglobin 13.1, hematocrit of 40.7, and platelet count 248,000. BMP, sodium 139, potassium 3.8, chloride is 96, CO2 is 32, BUN is 87, creatinine 3.4, total bilirubin of 2, alkaline phosphatase is 132. CK-MB is 2.8. AST is 24, ALT is 32. Troponin is 0.013. INR is 1.3. UA, 4+ protein, 1+ ketones, 5+ blood, too many to count rbc's. CT of abdomen and pelvis, [id number] rectal distention by stool, could have fecal impaction, prostate megaly, cardiomegaly, diverticulosis. CT of brain, chronic multiple old lacunar infarcts. Chest x-ray, no acute process. ASSESSMENT: 1. Metabolic encephalopathy secondary to uremia and possible infection. 2. Chronic CHF with ejection fraction of 11%, status post ICD. 3. Acute on chronic kidney failure with baseline creatinine of 2.2 to 2.4. 4. Negative myoclonus. 5. Coronary artery disease. 6. History of NSTEMI. 7. History of CABG. 8. Hypertension. 9. Paroxysmal atrial fibrillation. 10. Dyslipidemia. 11. Diabetes type 2. 12. Congestive hepatopathy. 13. Major depressive disorder. 14. Gout. 15. Hematuria. PLAN: 1. The patient to be admitted to telemetry. 2. We would hold Bumex and metolazone given elevated creatinine. 3. Urology consult for hematuria. 4. Monitor hemoglobin and hematocrit. 5. Hold Eliquis given hematuria. 6. ID consult because of leukocytosis. 7. Psychiatry consult for agitation. We will avoid Ativan because of metabolic encephalopathy, instead we would give Haldol p.r.n. agitation. 8. Discussed with DPOA at bedside the patient's poor overall status, and he appears to understand and appears to be agreeable to hospice, which I will have a social organization professor help sort out back at the [facility] facility. 9. Swallow evaluation ordered given metabolic encephalopathy. 10. Code status is DNR as indicated by POLST. 11. No DVT prophylaxis because of the patient's hematuria. Sebastian Zimmerman MD DR: Louise JOB#: [id number] CC: RUSLAN
[2018-02-25] MEDS ORDERED: BuPROPion SR 150mg tab ORAL SCH ×2 (21:00)
[2018-02-25] MEDS ORDERED: Atorvastatin 80mg tab ORAL SCH (21:00)
[2018-02-25] MEDS ORDERED: Carvedilol 25mg Tab ORAL SCH (21:00)
--- NOTE | 2018-02-25 21:00 | Consultation ---
DATE OF CONSULTATION: 02/25/2018 INFECTIOUS DISEASE CONSULT: CONSULTING PHYSICIAN: Edith Jeffery M.D. ATTENDING PHYSICIAN: Sebastian Zimmerman M.D. REFERRING PHYSICIAN: Sebastian Zimmerman M.D. REASON FOR CONSULTATION: Sepsis, UTI, leukocytosis, altered mental status. CHIEF COMPLAINT: The patient's chief complaint coming in to the hospital is encephalopathy, hematuria, UTI, sepsis. HISTORY OF PRESENT ILLNESS: This is a 67-year-old male, who has history of recent hospitalizations for cardiac disease. The patient was at the [facility], was noted to have worsening mental status and lethargy. It is unclear if the patient has underlying history of encephalopathy. The patient with altered mental status, was noted to have a positive urinalysis and likely has urinary tract infection. The patient also looks like he is septic with altered mental status, elevated heart rate as high as 99, and respiratory rate as high as 24. The patient's chest x-ray was negative. The patient has SIRS criteria. Infectious Disease consultation was requested for antibiotic management. The patient was placed on doxycycline and Zosyn. The patient is at risk for also aspiration; however, chest x-ray is negative. Cultures are pending. MAR was noted. Orders were noted. Notes were reviewed. Urine culture and blood cultures were ordered. Case communicated with Dr. Sebastian Zimmerman. The patient cannot give any further history. The patient currently is on telemetry unit. I also discussed the case with nursing staff. REVIEW OF SYSTEMS: CONSTITUTIONAL: The patient has generalized fatigue, weakness, encephalopathy, altered mental status, and responds to certain extent in my limited communication. HEAD AND NECK: No head pain or neck stiffness, but poor historian. CARDIAC: He is not on pressors. GASTROINTESTINAL: No nausea, vomiting, or diarrhea. No abdominal pain. PULMONARY: No shortness of breath, congestion, hemoptysis, or secretions. He has elevated respiratory rate. GENITOURINARY: He does have a Salinas. No obvious CVA tenderness. SKIN: No rash or itching. EXTREMITIES: No extremity pain. NEUROLOGIC: No seizures. He has generalized fatigue and weakness. He is lethargic and encephalopathic. Otherwise, review of systems is limited in this patient. He has a Salinas, but no central line. PAST MEDICAL HISTORY: Includes the following. Obtained from the records and the chart because the patient is a poor historian. The patient has a past medical history of chronic systolic and diastolic CHF, history of 11% ejection fraction, history of weakness, history of CAD, history of non STEMI, history of CABG, history of hypertension, history of dyslipidemia, chronic kidney disease, paroxysmal atrial fibrillation, anemia, elevated creatinine, diabetes, hepatopathy, and major depression. He is on antidepressants I think. Again, diabetes and hypertension as mentioned. ALLERGIES: No known drug allergies. No antibiotic allergies. FAMILY HISTORY: Per the records, there is no mention of diabetes, cancer, or tuberculosis in the family. SOCIAL HISTORY: Negative for smoking, alcohol, or drug abuse. MEDICATIONS: Upon reviewing the MAR, the patient is on following medications. He is on amiodarone or Cordarone. He is on MiraLAX and Januvia. He is on doxycycline, Zosyn, atorvastatin, bupropion, carvedilol, Coreg, Neurontin, IV fluids, and insulin. He is also on gabapentin. Outside medication noted and reconciliated. PHYSICAL EXAMINATION: VITAL SIGNS: Temperature 98.0, pulse rate 60, respiratory rate 18, blood pressure 121/81, and saturation 98%. Heart rate has been as high as 99. Respiratory rate is as high at 24. GENERAL: Lethargic. Somewhat responsive overall poorly response. HEAD AND NECK: Oral exam, no thrush. Eye exam, no icterus. Neck is supple to my exam. No JVD. Normocephalic. No icterus noted. No external thrush. HEART: Regular. No obvious gallop or murmur. ABDOMEN: Soft. Positive bowel sounds. Nontender. LUNGS: Clear bilaterally. No rhonchi or rales. SKIN: No rash. MUSCULOSKELETAL: No effusion. Legs are without cellulitis. PERIPHERAL VASCULAR: No cyanosis or gangrene. GENITOURINARY: He has Salinas. Urine is cloudy. LINE SITES: Without phlebitis. NEUROLOGIC: Generalized weakness. Poorly responsive. LABORATORY DATA: As follows. I have ordered lactic acid level, has not been done. Creatinine 3.4, sodium 137, and potassium 3.3. White count 15.8 and hemoglobin 13.1. UA positive leukocyte esterase, too many to count RBCs, 5 to 10 white blood cells. Troponin 0.13. Chest x-ray showed no acute disease. No pneumonia is noted and reviewed. CT scan of abdomen and pelvis was reviewed and noted. There is no mention of abscess. Head CT showed chronic changes, age-related, multiple preliminary infarcts, no acute bleed. Cultures are pending. ASSESSMENT AND PLAN: 1. The patient has altered mental status, encephalopathy, elevated respiratory rate and heart rate, and leukocytosis. The patient likely is septic based on SIRS criteria. Most likely, he has UTI sepsis. Rule out aspiration process since he does have high risk for aspiration; however, chest x-ray is negative. Continue Zosyn and doxycycline to cover UTI and sepsis. Check urine culture and blood culture. Followup labs and chest x-ray. Unfortunately, we cannot give vancomycin because of the patient's renal failure. In addition, Zyvox is contraindicated because the patient is on antidepressant, I believe bupropion. Continue Zosyn and doxycycline for UTI sepsis. Check followup labs, chest x-ray, and cultures. Adjust antibiotics as needed and appropriate. 2. Altered mental status, likely secondary to sepsis. However if does not improve, consider neurologic evaluation and possible lumbar puncture. His neck seems to be supple on exam at this time. 3. The patient has a history of chronic renal failure. Currently, he is in acute renal failure. 4. Anemia. 5. History of CHF, chronic and systolic diastolic. 6. Weakness. 7. History of CAD. 8. History of non STEMI. 9. History of CABG. 10. Hypertension. 11. Paroxysmal atrial fibrillation. 12. Dyslipidemia. 13. Diabetes. 14. Depression. 15. No known allergies. 16. Social history negative. 17. Family history noncontributory. 18. MAR was noted. 19. Case was discussed with RN. 20. Continue treatment per primary consultants. 21. Notes and records were noted. 22. Orders were noted and entered. Edith Jeffery M.D. DR: SUSAN JOB#: [id number] CC:
[2018-02-25] MEDS: Atorvastatin 80mg tab ORAL SCH (23:01)
[2018-02-25] MEDS: Carvedilol 25mg Tab ORAL SCH (23:01)
--- NOTE | 2018-02-25 23:45 | Consultation ---
DATE OF CONSULTATION: 02/25/2018 UROLOGY CONSULTATION CONSULTING PHYSICIAN: Jose Cochran M.D. REFERRING PHYSICIAN: Sebastian Zimmerman M.D. REASON FOR CONSULTATION: Gross hematuria. HISTORY OF PRESENT ILLNESS: This is a 67-year-old male, resident of a [facility]. He has history of BPH and urinary retention. Apparently, he has failed multiple voiding trials recently. He has a chronic Salinas. He was brought to the emergency room at [facility] because of increased lethargy, altered mental status, and also gross hematuria. Urology evaluation is requested. The patient has history of encephalopathy. He is confused, altered, not able to get history from and most of the history was obtained from the chart, but again, he does have history of BPH with urinary retention. Apparently, he has history of chronic kidney disease. PAST MEDICAL HISTORY: Significant for above, also coronary artery disease with ejection fraction of 11%, history of hypertension, mood disorder, anxiety. PAST SURGICAL HISTORY: ICD placement. Other surgeries are unknown. CURRENT MEDICATIONS: Here in the hospital, the patient is on Cardura, MiraLAX, Januvia, Lipitor, Wellbutrin, Coreg, Neurontin, Zosyn, insulin. Apparently as an outpatient, he has been on Eliquis, Plavix, and aspirin. ALLERGIES: No known drug allergies. SOCIAL HISTORY: He does live in a [facility]. FAMILY HISTORY: Unable to obtain. REVIEW OF SYSTEMS: Unable to obtain. PHYSICAL EXAMINATION: GENERAL: Elderly male, slightly cachectic. He is altered. VITAL SIGNS: Temperature is 100.2, blood pressure is 102/65. HEENT: Normocephalic. NECK: Supple. ABDOMEN: Soft. GENITOURINARY: There is a 16-Kenyan Salinas in place. Urine is grossly bloody. EXTREMITIES: No clubbing or cyanosis. LABORATORY DATA: His UA showed 4+ protein, too numerous to count rbc's, 5-10 wbc's. White count is 15.8, hemoglobin 13.1, and platelets of 248,000. BUN is 87, creatinine is 3.4, baseline creatinine is unknown to me. PT is 13.2 and INR 1.3. DIAGNOSTIC IMAGING STUDIES: The patient had a CT scan of the abdomen and pelvis. There was mention of prostatomegaly. There was mention of clots within the bladder. There was also mention of a small cortical renal cyst. No hydronephrosis. He also had a renal ultrasound which showed marked prostatomegaly with a volume of 111 mL. IMPRESSION: 1. Gross hematuria, presumably secondary to Salinas trauma. 2. Urinary retention. 3. BPH history. 4. Probable neurogenic bladder. 5. Pyuria. 6. Proteinuria. 7. Renal insufficiency, acute on chronic. 8. Renal cyst. PLAN AND DISCUSSION: The patient does have gross hematuria presumably secondary to Salinas trauma. I did evaluate the patient at the bedside and his Salinas catheter was hand-irrigated. There were no clots, but it started to clear and I do not see any active bleeding, however, there was some resistance to irrigation with a 16-Kenyan Salinas and I thought he may have bigger clots that are not coming out. As such, I personally removed 16-Kenyan Salinas and placed a 24-Kenyan 3-way Salinas catheter. The balloon was inflated to 50 mL to keep it in the bladder. I hand-irrigated some more clots out, but again the urine is clearing. I do not see any active bleeding. At this time, I do not feel that continuous bladder irrigation is necessary and the irrigation port was plugged. He will be hand-irrigated on a p.r.n. basis. I would recommend to continue with antibiotics as ordered. I will also add finasteride 5 mg daily and at this time, he is to stay off anticoagulation until the bleeding has subsided. He will need to have cystoscopy at some point and I have also discussed the case with his outside urologist. Thank you for this consultation. Jose Cochran M.D. DR: Marlene JOB#: [id number] CC: MD HUMBERTO English M.D. ; FAX#: [phone] DANICA NAVARRO M.D.; FAX#: [phone]
[2018-02-26] VITALS: BP 110/60
[2018-02-26 04:00] VITALS: BP_SYST 146; BP_SYST 95; BP_DIAS 59; BP_DIAS 66
[2018-02-26] MEDS: NovoLOG Insulin Flexpen SUBQ SCH ×4 (07:02→20:35)
[2018-02-26 08:00] VITALS: BP 93/71
[2018-02-26] MEDS ORDERED: Miralax 17gm pkt ORAL SCH (09:00)
[2018-02-26] MEDS ORDERED: sitaGLIPtin 25mg tab ORAL SCH (09:00)
[2018-02-26] MEDS ORDERED: Breo Ellipta 100/25mcg - 14 dose INH SCH (09:00)
[2018-02-26] MEDS ORDERED: Aspirin EC 81mg tab ORAL SCH (09:00)
[2018-02-26] MEDS: Carvedilol 25mg Tab ORAL SCH ×2 (09:00→21:19)
[2018-02-26] MEDS ORDERED: Amiodarone 200mg tab ORAL SCH (09:00)
[2018-02-26] MEDS: Breo Ellipta 100/25mcg - 14 dose INH SCH (09:13)
[2018-02-26 09:47] LABS: HEMATOCRIT 36.9 % (42.0-52.0); HEMOGLOBIN 12.4 G/DL (14.2-18.0); MEAN CORPUSCULAR VOLUME 81 FL (80-99); PLATELET COUNT 247 K/UL (150-450); RED BLOOD COUNT 4.53 M/UL (4.70-6.10); RED CELL DISTRIBUTION WIDTH 17.3 % (11.6-14.8)
[2018-02-26 09:51] LABS: WHITE BLOOD COUNT 22.9 K/UL (4.8-10.8)
[2018-02-26 09:57] LABS: ANION GAP 14 mmol/L (5-15); BLOOD UREA NITROGEN 107 mg/dL (7-18); CALCIUM 9.6 MG/DL (8.5-10.1); CARBON DIOXIDE 32 MMOL/L (21-32); CHLORIDE 99 MMOL/L (98-107); CREATININE 3.9 MG/DL (0.55-1.30); SODIUM 144 MMOL/L (136-145)
[2018-02-26 10:00] LABS: POTASSIUM 2.7 MMOL/L (3.5-5.1)
--- NOTE | 2018-02-26 10:40 | Urology Progress Note ---
Assessment/Plan Assessment/Plan 1. Gross hematuria, presumably secondary to Bee trauma. 2. Urinary retention. 3. BPH history. 4. Probable neurogenic bladder. 5. Pyuria. 6. Proteinuria. 7. Renal insufficiency, acute on chronic. 8. Renal cyst. keep bee indwelling cath hand irrigated and do PRN cont with proscar and abx cysto later monitor renal fxn f/u on urine cx Subjective Allergies: Coded Allergies: No Known Allergies (Unverified , 02/25/18) Subjective all noted, confused Objective Last 24 Hour Vital Signs Date Time Temp Pulse Resp B/P (MAP) Pulse Ox O2 Delivery O2 Flow Rate FiO2 02/26/18 09:14 83 16 95 Nasal Cannula 2.0 02/26/18 09:00 80 93/71 02/26/18 08:00 97.3 80 22 93/71 (78) 80 02/26/18 04:00 97.9 53 18 95/59 (71) 100 02/26/18 03:34 96 02/26/18 00:00 98.2 86 22 110/60 (77) 96 02/25/18 23:27 88 02/25/18 23:01 92 103/60 02/25/18 21:00 Nasal Cannula 2.0 02/25/18 20:00 99.4 92 22 103/60 (74) 95 02/25/18 19:03 98 02/25/18 16:00 100.2 112 22 102/65 (77) 97 02/25/18 16:00 119 02/25/18 13:43 Nasal Cannula 2.0 Intake and Output 02/25/18 02/26/18 18:59 06:59 Intake Total 25 ml 25 ml Output Total 530 ml 350 ml Balance -505 ml -325 ml Intake IV Total 25 ml 25 ml Output Urine Total 530 ml 350 ml Microbiology Date/Time Source Procedure Growth Status 02/25/18 14:26 Indwelling Cath Urine Culture - Preliminary NO GROWTH Resulted 02/25/18 12:00 Rectum - Preliminary Resulted Current Medications Medications (Trade) Dose Ordered Sig/Jessica Route PRN Reason Start Time Stop Time Status Last Admin Dose Admin Amiodarone HCl (Cordarone) 200 mg DAILY ORAL 02/26/18 09:00 03/28/18 08:59 Atorvastatin Calcium (Lipitor) 80 mg BEDTIME ORAL 02/25/18 21:00 03/27/18 20:59 02/25/18 23:01 Bupropion HCl (Wellbutrin SR) 150 mg BEDTIME ORAL 02/25/18 21:00 03/27/18 20:59 02/25/18 23:01 Carvedilol (Coreg) 25 mg EVERY 12 HOURS ORAL 02/25/18 21:00 03/27/18 20:59 02/25/18 23:01 Dextrose (Dextrose 50%) 25 ml Q30M PRN IV Hypoglycemia 02/25/18 16:00 03/27/18 12:59 Dextrose (Dextrose 50%) 50 ml Q30M PRN IV Hypoglycemia 02/25/18 16:00 03/27/18 12:59 Doxycycline Hyclate 100 mg/ Dextrose 100 ml @ 100 mls/hr Q12HR IV 02/25/18 21:00 03/04/18 20:59 02/25/18 21:00 Finasteride (Proscar) 5 mg DAILY ORAL 02/25/18 21:00 03/27/18 20:59 02/25/18 23:02 Fluticasone/ Vilanterol (Breo Ellipta 100/25) 1 puff DAILY INH 02/26/18 09:00 03/28/18 08:59 02/26/18 09:13 Gabapentin (Neurontin) 300 mg BEDTIME ORAL 02/25/18 21:00 03/27/18 20:59 02/25/18 23:02 Haloperidol Lactate (Haldol) 5 mg Q6H PRN IM Agitation 02/25/18 16:45 03/27/18 10:44 Insulin Aspart (NovoLOG) BEFORE MEALS AND HS SUBQ 02/25/18 16:30 03/27/18 16:29 02/26/18 07:02 Piperacillin Sod/ Tazobactam Sod 3.375 gm/Dextrose 100 ml @ 25 mls/hr Q12H IVPB 02/26/18 18:00 03/04/18 20:00 Polyethylene Glycol (Miralax) 17 gm DAILY ORAL 02/26/18 09:00 03/28/18 08:59 Sitagliptin Phosphate (Januvia) 25 mg DAILY ORAL 02/26/18 09:00 03/28/18 08:59 Laboratory Tests 02/25/18 14:26: Urine Random Sodium < 20L, Urine Creatinine 102.4 02/25/18 17:15: Lactic Acid Level 2.70H 02/26/18 08:25: White Blood Count 22.9*H, Red Blood Count 4.53L, Hemoglobin 12.4L, Hematocrit 36.9L, Mean Corpuscular Volume 81, Mean Corpuscular Hemoglobin 27.4, Mean Corpuscular Hemoglobin Concent 33.7, Red Cell Distribution Width 17.3H, Platelet Count 247, Mean Platelet Volume 8.2, Neutrophils (%) (Auto) , Lymphocytes (%) (Auto) , Monocytes (%) (Auto) , Eosinophils (%) (Auto) , Basophils (%) (Auto) , Differential Total Cells Counted 100, Neutrophils % ( Manual) 88H, Lymphocytes % (Manual) 7L, Monocytes % (Manual) 5, Eosinophils % ( Manual) 0, Basophils % (Manual) 0, Band Neutrophils 0, Platelet Estimate Adequate, Platelet Morphology Normal, Red Blood Cell Morphology Normal, Sodium Level 144, Potassium Level 2.7*L, Chloride Level 99, Carbon Dioxide Level 32, Anion Gap 14, Blood Urea Nitrogen 107H, Creatinine 3.9H, Estimat Glomerular Filtration Rate 15.5, Glucose Level 344H, Calcium Level 9.6, Phosphorus Level 4.4 Height (Feet): 6 Height (Inches): 0.00 Weight (Pounds): 170 Objective bee indwelling, zayda urine Jose Cochran MD Feb 26, 2018 10:40
[2018-02-26] MEDS: sitaGLIPtin 25mg tab ORAL SCH (10:54)
[2018-02-26] MEDS: Amiodarone 200mg tab ORAL SCH (10:54)
[2018-02-26] MEDS: Miralax 17gm pkt ORAL SCH (10:55)
--- NOTE | 2018-02-26 11:08 | General Progress Note ---
Assessment/Plan Problem List: (1) Encephalopathy ICD Codes: G93.40 - Encephalopathy, unspecified SNOMED: 64395855 Status: stable Assessment/Plan The pt was provided ro/st Seroquel 25mg qhs Seroquel prn Subjective Neurologic/Psychiatric: Reports: anxiety Allergies: Coded Allergies: No Known Allergies (Unverified , 02/25/18) Subjective the pt has waxing and waning of consciousness and is unable to answer the questions. Objective Last 24 Hour Vital Signs Date Time Temp Pulse Resp B/P (MAP) Pulse Ox O2 Delivery O2 Flow Rate FiO2 02/26/18 09:15 83 16 95 Nasal Cannula 2.0 28 02/26/18 09:14 83 16 95 Nasal Cannula 2.0 28 02/26/18 09:00 80 93/71 02/26/18 08:00 97.3 80 22 93/71 (78) 80 02/26/18 04:00 97.9 53 18 95/59 (71) 100 02/26/18 03:34 96 02/26/18 00:00 98.2 86 22 110/60 (77) 96 02/25/18 23:27 88 02/25/18 23:01 92 103/60 02/25/18 21:00 Nasal Cannula 2.0 02/25/18 20:00 99.4 92 22 103/60 (74) 95 02/25/18 19:03 98 02/25/18 16:00 100.2 112 22 102/65 (77) 97 02/25/18 16:00 119 02/25/18 13:43 Nasal Cannula 2.0 Intake and Output 02/25/18 02/26/18 18:59 06:59 Intake Total 25 ml 25 ml Output Total 530 ml 350 ml Balance -505 ml -325 ml Intake IV Total 25 ml 25 ml Output Urine Total 530 ml 350 ml Laboratory Tests 02/25/18 14:26: Urine Random Sodium < 20L, Urine Creatinine 102.4 02/25/18 17:15: Lactic Acid Level 2.70H 02/26/18 08:25: White Blood Count 22.9*H, Red Blood Count 4.53L, Hemoglobin 12.4L, Hematocrit 36.9L, Mean Corpuscular Volume 81, Mean Corpuscular Hemoglobin 27.4, Mean Corpuscular Hemoglobin Concent 33.7, Red Cell Distribution Width 17.3H, Platelet Count 247, Mean Platelet Volume 8.2, Neutrophils (%) (Auto) , Lymphocytes (%) (Auto) , Monocytes (%) (Auto) , Eosinophils (%) (Auto) , Basophils (%) (Auto) , Differential Total Cells Counted 100, Neutrophils % ( Manual) 88H, Lymphocytes % (Manual) 7L, Monocytes % (Manual) 5, Eosinophils % ( Manual) 0, Basophils % (Manual) 0, Band Neutrophils 0, Platelet Estimate Adequate, Platelet Morphology Normal, Red Blood Cell Morphology Normal, Sodium Level 144, Potassium Level 2.7*L, Chloride Level 99, Carbon Dioxide Level 32, Anion Gap 14, Blood Urea Nitrogen 107H, Creatinine 3.9H, Estimat Glomerular Filtration Rate 15.5, Glucose Level 344H, Calcium Level 9.6, Phosphorus Level 4.4 Height (Feet): 6 Height (Inches): 0.00 Weight (Pounds): 170 General Appearance: lethargic, confused, moderate distress, agitated Dwight Rodriguez MD Feb 26, 2018 11:08
--- NOTE | 2018-02-26 11:35 | Infectious Diseases Prog Note ---
Assessment/Plan Assessment/Plan Full consult dictated: A) 1) sepsis, ams, leukocytosis - ? source, ct without abscess 2) uti, + ua, urine culture negative 3) chest x-ray - negative 4) allergies - nkda 5) pmh noted P) 1) zosyn and doxycycline 2) check labs, cultures and f/u chest x-ray 3) check c.diff. 4) will f/u Subjective Constitutional: Denies: fever Respiratory: Denies: shortness of breath Cardiovascular: Denies: chest pain Gastrointestinal/Abdominal: Denies: nausea, vomiting, diarrhea Genitourinary: Reports: other - + bee Allergies: Coded Allergies: No Known Allergies (Unverified , 02/25/18) Objective Vital Signs Last 24 Hour Vital Signs Date Time Temp Pulse Resp B/P (MAP) Pulse Ox O2 Delivery O2 Flow Rate FiO2 02/26/18 09:15 83 16 95 Nasal Cannula 2.0 28 02/26/18 09:14 83 16 95 Nasal Cannula 2.0 28 02/26/18 09:00 Nasal Cannula 2.0 02/26/18 09:00 80 93/71 02/26/18 08:00 97.3 80 22 93/71 (78) 80 02/26/18 04:00 97.9 53 18 95/59 (71) 100 02/26/18 03:34 96 02/26/18 00:00 98.2 86 22 110/60 (77) 96 02/25/18 23:27 88 02/25/18 23:01 92 103/60 02/25/18 21:00 Nasal Cannula 2.0 02/25/18 20:00 99.4 92 22 103/60 (74) 95 02/25/18 19:03 98 02/25/18 16:00 100.2 112 22 102/65 (77) 97 02/25/18 16:00 119 02/25/18 13:43 Nasal Cannula 2.0 Height (Feet): 6 Height (Inches): 0.00 Weight (Pounds): 170 General Appearance: no acute distress HEENT: normocephalic, atraumatic, anicteric Respiratory/Chest: lungs clear, normal breath sounds Cardiovascular: normal rate, regular rhythm Abdomen: soft, non tender, no organomegaly Extremities: no cyanosis Neurologic/Psychiatric: test developer II-XII grossly normal, alert, responsive Lymphatic: no neck adenopathy Musculoskeletal: no effusion Microbiology Date/Time Source Procedure Growth Status 02/25/18 14:26 Indwelling Cath Urine Culture - Preliminary NO GROWTH Resulted 02/25/18 12:00 Rectum - Preliminary Resulted Laboratory Tests Test 02/25/18 14:26 02/25/18 17:15 02/26/18 08:25 Urine Random Sodium < 20 mmol/L (20-110) L Urine Creatinine 102.4 MG/DL (30.0-125.0) Lactic Acid Level 2.70 mmol/L (0.4-2.0) H White Blood Count 22.9 K/UL (4.8-10.8) *H Red Blood Count 4.53 M/UL (4.70-6.10) L Hemoglobin 12.4 G/DL (14.2-18.0) L Hematocrit 36.9 % (42.0-52.0) L Mean Corpuscular Volume 81 FL (80-99) Mean Corpuscular Hemoglobin 27.4 PG (27.0-31.0) Mean Corpuscular Hemoglobin Concent 33.7 G/DL (32.0-36.0) Red Cell Distribution Width 17.3 % (11.6-14.8) H Platelet Count 247 K/UL (150-450) Mean Platelet Volume 8.2 FL (6.5-10.1) Neutrophils (%) (Auto) % (45.0-75.0) Lymphocytes (%) (Auto) % (20.0-45.0) Monocytes (%) (Auto) % (1.0-10.0) Eosinophils (%) (Auto) % (0.0-3.0) Basophils (%) (Auto) % (0.0-2.0) Differential Total Cells Counted 100 Neutrophils % (Manual) 88 % (45-75) H Lymphocytes % (Manual) 7 % (20-45) L Monocytes % (Manual) 5 % (1-10) Eosinophils % (Manual) 0 % (0-3) Basophils % (Manual) 0 % (0-2) Band Neutrophils 0 % (0-8) Platelet Estimate Adequate Platelet Morphology Normal Red Blood Cell Morphology Normal Sodium Level 144 MMOL/L (136-145) Potassium Level 2.7 MMOL/L (3.5-5.1) *L Chloride Level 99 MMOL/L (98-107) Carbon Dioxide Level 32 MMOL/L (21-32) Anion Gap 14 mmol/L (5-15) Blood Urea Nitrogen 107 mg/dL (7-18) H Creatinine 3.9 MG/DL (0.55-1.30) H Estimat Glomerular Filtration Rate 15.5 mL/min (>60) Glucose Level 344 MG/DL (74-106) H Calcium Level 9.6 MG/DL (8.5-10.1) Phosphorus Level 4.4 MG/DL (2.5-4.9) Current Medications Medications (Trade) Dose Ordered Sig/Jessica Route PRN Reason Start Time Stop Time Status Last Admin Dose Admin Amiodarone HCl (Cordarone) 200 mg DAILY ORAL 02/26/18 09:00 03/28/18 08:59 02/26/18 10:54 Atorvastatin Calcium (Lipitor) 80 mg BEDTIME ORAL 02/25/18 21:00 03/27/18 20:59 02/25/18 23:01 Carvedilol (Coreg) 25 mg EVERY 12 HOURS ORAL 02/25/18 21:00 03/27/18 20:59 02/25/18 23:01 Dextrose (Dextrose 50%) 25 ml Q30M PRN IV Hypoglycemia 02/25/18 16:00 03/27/18 12:59 Dextrose (Dextrose 50%) 50 ml Q30M PRN IV Hypoglycemia 02/25/18 16:00 03/27/18 12:59 Doxycycline Hyclate 100 mg/ Dextrose 100 ml @ 100 mls/hr Q12HR IV 02/25/18 21:00 03/04/18 20:59 02/26/18 09:00 Finasteride (Proscar) 5 mg DAILY ORAL 02/25/18 21:00 03/27/18 20:59 02/26/18 10:54 Fluticasone/ Vilanterol (Breo Ellipta 100/25) 1 puff DAILY INH 02/26/18 09:00 03/28/18 08:59 02/26/18 09:13 Gabapentin (Neurontin) 300 mg BEDTIME ORAL 02/25/18 21:00 03/27/18 20:59 02/25/18 23:02 Haloperidol Lactate (Haldol) 5 mg Q6H PRN IM Agitation 02/25/18 16:45 03/27/18 10:44 Insulin Aspart (NovoLOG) BEFORE MEALS AND HS SUBQ 02/25/18 16:30 03/27/18 16:29 02/26/18 07:02 Piperacillin Sod/ Tazobactam Sod 3.375 gm/Dextrose 100 ml @ 25 mls/hr Q12H IVPB 02/26/18 18:00 03/04/18 20:00 Polyethylene Glycol (Miralax) 17 gm DAILY ORAL 02/26/18 09:00 03/28/18 08:59 02/26/18 10:55 Quetiapine Fumarate (SEROquel) 12.5 mg Q12HR ORAL 02/26/18 21:00 03/28/18 20:59 Quetiapine Fumarate (SEROquel) 12.5 mg Q4H PRN ORAL anxiety 02/26/18 12:00 03/28/18 11:59 Sitagliptin Phosphate (Januvia) 25 mg DAILY ORAL 02/26/18 09:00 03/28/18 08:59 02/26/18 10:54 Edith Jeffery MD Feb 26, 2018 11:35
[2018-02-26 12:00] VITALS: BP 105/58
--- NOTE | 2018-02-26 12:16 | Nephrology Progress Note ---
Assessment/Plan Problem List: (1) ARF (acute renal failure) Assessment: worse. urine sodium prerenal (2) Cardiomegaly (3) Hypokalemia (4) Malnutrition Plan Replete K IVF low dose dopamine ? check Mag with AM labs Nutritional eval Discussed with dr Zimmerman Subjective Subjective lethargic Objective Objective Last 24 Hour Vital Signs Date Time Temp Pulse Resp B/P (MAP) Pulse Ox O2 Delivery O2 Flow Rate FiO2 02/26/18 09:15 83 16 95 Nasal Cannula 2.0 28 02/26/18 09:14 83 16 95 Nasal Cannula 2.0 28 02/26/18 09:00 Nasal Cannula 2.0 02/26/18 09:00 80 93/71 02/26/18 08:00 97.3 80 22 93/71 (78) 80 02/26/18 04:00 97.9 53 18 95/59 (71) 100 02/26/18 03:34 96 02/26/18 00:00 98.2 86 22 110/60 (77) 96 02/25/18 23:27 88 02/25/18 23:01 92 103/60 02/25/18 21:00 Nasal Cannula 2.0 02/25/18 20:00 99.4 92 22 103/60 (74) 95 02/25/18 19:03 98 02/25/18 16:00 100.2 112 22 102/65 (77) 97 02/25/18 16:00 119 02/25/18 13:43 Nasal Cannula 2.0 Intake and Output 02/25/18 02/26/18 18:59 06:59 Intake Total 25 ml 25 ml Output Total 530 ml 350 ml Balance -505 ml -325 ml Intake IV Total 25 ml 25 ml Output Urine Total 530 ml 350 ml Laboratory Tests 02/25/18 14:26: Urine Random Sodium < 20L, Urine Creatinine 102.4 02/25/18 17:15: Lactic Acid Level 2.70H 02/26/18 08:25: White Blood Count 22.9*H, Red Blood Count 4.53L, Hemoglobin 12.4L, Hematocrit 36.9L, Mean Corpuscular Volume 81, Mean Corpuscular Hemoglobin 27.4, Mean Corpuscular Hemoglobin Concent 33.7, Red Cell Distribution Width 17.3H, Platelet Count 247, Mean Platelet Volume 8.2, Neutrophils (%) (Auto) , Lymphocytes (%) (Auto) , Monocytes (%) (Auto) , Eosinophils (%) (Auto) , Basophils (%) (Auto) , Differential Total Cells Counted 100, Neutrophils % ( Manual) 88H, Lymphocytes % (Manual) 7L, Monocytes % (Manual) 5, Eosinophils % ( Manual) 0, Basophils % (Manual) 0, Band Neutrophils 0, Platelet Estimate Adequate, Platelet Morphology Normal, Red Blood Cell Morphology Normal, Sodium Level 144, Potassium Level 2.7*L, Chloride Level 99, Carbon Dioxide Level 32, Anion Gap 14, Blood Urea Nitrogen 107H, Creatinine 3.9H, Estimat Glomerular Filtration Rate 15.5, Glucose Level 344H, Calcium Level 9.6, Phosphorus Level 4.4 Height (Feet): 6 Height (Inches): 0.00 Weight (Pounds): 170 Cardiovascular: normal rate Respiratory/Chest: lungs clear Extremities: other - no edema Isacc Ryder MD Feb 26, 2018 12:16
--- NOTE | 2018-02-26 13:03 | Diagnostic Imaging Report ---
Indication: Shortness of breath Technique: XRAY Chest 1v Comparison: 02/25/2018 Findings: Stable cardiomegaly. Prior cardiac surgery with median sternotomy and evidence of prior CABG. AICD unchanged in position. There is mild central pulmonary vascular congestion without evidence of alveolar edema. No new focal airspace consolidation. Osseous structures stable. Impression: Cardiomegaly with mild central pulmonary vascular congestion.
[2018-02-26] MEDS: cefTRIAXone 1 GM in D5W 50 ML IVPB SCH (13:50)
[2018-02-26 16:00] VITALS: BP 126/56
[2018-02-26 20:00] VITALS: BP 124/70
--- NOTE | 2018-02-26 20:09 | Internal Med Progress Note ---
Subjective Physician Name Sebastian Zimmerman Attending Physician Sebastian Zimmerman MD Current Medications Medications (Trade) Dose Ordered Sig/Jessica Route PRN Reason Start Time Stop Time Status Last Admin Dose Admin Amiodarone HCl (Cordarone) 200 mg DAILY ORAL 02/26/18 09:00 03/28/18 08:59 02/26/18 10:54 Atorvastatin Calcium (Lipitor) 80 mg BEDTIME ORAL 02/25/18 21:00 03/27/18 20:59 02/25/18 23:01 Carvedilol (Coreg) 25 mg EVERY 12 HOURS ORAL 02/25/18 21:00 03/27/18 20:59 02/25/18 23:01 Ceftriaxone Sodium 1 gm/ Dextrose 50 ml @ 100 mls/hr Q24H IVPB 02/26/18 13:00 03/05/18 12:59 02/26/18 13:50 Dextrose (Dextrose 50%) 25 ml Q30M PRN IV Hypoglycemia 02/25/18 16:00 03/27/18 12:59 Dextrose (Dextrose 50%) 50 ml Q30M PRN IV Hypoglycemia 02/25/18 16:00 03/27/18 12:59 Doxycycline Hyclate 100 mg/ Dextrose 100 ml @ 100 mls/hr Q12HR IV 02/25/18 21:00 03/04/18 20:59 02/26/18 09:00 Finasteride (Proscar) 5 mg DAILY ORAL 02/25/18 21:00 03/27/18 20:59 02/26/18 10:54 Fluticasone/ Vilanterol (Breo Ellipta 100/25) 1 puff DAILY INH 02/26/18 09:00 03/28/18 08:59 02/26/18 09:13 Gabapentin (Neurontin) 300 mg BEDTIME ORAL 02/25/18 21:00 03/27/18 20:59 02/25/18 23:02 Haloperidol Lactate (Haldol) 5 mg Q6H PRN IM Agitation 02/25/18 16:45 03/27/18 10:44 Insulin Aspart (NovoLOG) BEFORE MEALS AND HS SUBQ 02/25/18 16:30 03/27/18 16:29 02/26/18 17:22 Metronidazole 100 ml @ 100 mls/hr Q8HR IVPB 02/26/18 14:00 03/05/18 13:59 02/26/18 14:00 Polyethylene Glycol (Miralax) 17 gm DAILY ORAL 02/26/18 09:00 03/28/18 08:59 02/26/18 10:55 Quetiapine Fumarate (SEROquel) 12.5 mg Q12HR ORAL 02/26/18 21:00 03/28/18 20:59 Quetiapine Fumarate (SEROquel) 12.5 mg Q4H PRN ORAL anxiety 02/26/18 12:00 03/28/18 11:59 Sitagliptin Phosphate (Januvia) 25 mg DAILY ORAL 02/26/18 09:00 03/28/18 08:59 02/26/18 10:54 Allergies: Coded Allergies: No Known Allergies (Unverified , 02/25/18) Subjective patient more somnolent and lethargic he is NPO after failing swallow evaluation WBC increasing Cr and BUN increasing afebrile less blood in bee ROS unobtainable bc dec mental status Objective Last Vital Signs Date Time Temp Pulse Resp B/P (MAP) Pulse Ox O2 Delivery O2 Flow Rate FiO2 02/26/18 16:00 98.8 20 126/56 (79) 96 02/26/18 16:00 84 02/26/18 09:15 Nasal Cannula 2.0 28 Laboratory Tests Test 02/26/18 08:25 White Blood Count 22.9 K/UL (4.8-10.8) *H Red Blood Count 4.53 M/UL (4.70-6.10) L Hemoglobin 12.4 G/DL (14.2-18.0) L Hematocrit 36.9 % (42.0-52.0) L Mean Corpuscular Volume 81 FL (80-99) Mean Corpuscular Hemoglobin 27.4 PG (27.0-31.0) Mean Corpuscular Hemoglobin Concent 33.7 G/DL (32.0-36.0) Red Cell Distribution Width 17.3 % (11.6-14.8) H Platelet Count 247 K/UL (150-450) Mean Platelet Volume 8.2 FL (6.5-10.1) Neutrophils (%) (Auto) % (45.0-75.0) Lymphocytes (%) (Auto) % (20.0-45.0) Monocytes (%) (Auto) % (1.0-10.0) Eosinophils (%) (Auto) % (0.0-3.0) Basophils (%) (Auto) % (0.0-2.0) Differential Total Cells Counted 100 Neutrophils % (Manual) 88 % (45-75) H Lymphocytes % (Manual) 7 % (20-45) L Monocytes % (Manual) 5 % (1-10) Eosinophils % (Manual) 0 % (0-3) Basophils % (Manual) 0 % (0-2) Band Neutrophils 0 % (0-8) Platelet Estimate Adequate Platelet Morphology Normal Red Blood Cell Morphology Normal Sodium Level 144 MMOL/L (136-145) Potassium Level 2.7 MMOL/L (3.5-5.1) *L Chloride Level 99 MMOL/L (98-107) Carbon Dioxide Level 32 MMOL/L (21-32) Anion Gap 14 mmol/L (5-15) Blood Urea Nitrogen 107 mg/dL (7-18) H Creatinine 3.9 MG/DL (0.55-1.30) H Estimat Glomerular Filtration Rate 15.5 mL/min (>60) Glucose Level 344 MG/DL (74-106) H Calcium Level 9.6 MG/DL (8.5-10.1) Phosphorus Level 4.4 MG/DL (2.5-4.9) Microbiology Date/Time Source Procedure Growth Status 02/25/18 14:26 Indwelling Cath Urine Culture - Preliminary NO GROWTH Resulted 02/25/18 12:00 Rectum - Preliminary Resulted Intake and Output 02/25/18 02/26/18 19:00 07:00 Intake Total 25 ml 25 ml Output Total 530 ml 350 ml Balance -505 ml -325 ml IV Total 25 ml 25 ml Output Urine Total 530 ml 350 ml Objective gen - NAD. lethargic and somnolent HEENT - NC/AT CVS - RRR. no murmurs LUNGS - CTA b/l; no crackles ABD - NT/ND EXT - no c/c/e Neuro - somnolent; lethargic and difficult to arouse - bee - blood tinged urine Assessment/Plan Assessment/Plan ASSESSMENT: 1. Metabolic encephalopathy secondary to uremia and possible infection. 2. Chronic CHF with ejection fraction of 11%, status post ICD. 3. Acute on chronic kidney failure with baseline creatinine of 2.2 to 2.4 - Cr and BUN increasing (prerenal) 4. Negative myoclonus. 5. Coronary artery disease. 6. History of NSTEMI. 7. History of CABG. 8. Hypertension. 9. Paroxysmal atrial fibrillation. 10. Dyslipidemia. 11. Diabetes type 2. 12. Congestive hepatopathy. 13. Major depressive disorder. 14. Gout. 15. Hematuria - improved 16. Leukocytosis 17. thickened colon on CT abd - concerning for Cdiff colitis PLAN: 1. Telemetry 2. Hold Bumex and metolazone ; Gentle IVF and monitor Cr 3. Urology consult for hematuria. Danny irrigation with nurse 4. Monitor hemoglobin and hematocrit. 5. Hold Eliquis given hematuria. 6. ID consult for Leukocytosis. C diff ordered ; f/u cultures Abx - zosyn and doxycycline empirically 7. Psychiatry consult for agitation. We will avoid Ativan because of metabolic encephalopathy, instead we would give Haldol p.r.n. agitation. 8. CT abd/pelvis reviewed. no abscess 9. Swallow evaluation done - patient NPO bc not alert 10. Code status is DNR as indicated by POLST. 11. No DVT prophylaxis because of the patient's hematuria. Sebastian Zimmerman MD Feb 26, 2018 20:09
[2018-02-26] MEDS: Atorvastatin 80mg tab ORAL SCH (20:34)
[2018-02-27] VITALS: BP 108/64
[2018-02-27 04:00] VITALS: BP 104/46
[2018-02-27] MEDS: NovoLOG Insulin Flexpen SUBQ SCH ×3 (06:06→17:03)
[2018-02-27 07:27] LABS: HEMATOCRIT 36.5 % (42.0-52.0); HEMOGLOBIN 11.8 G/DL (14.2-18.0); MEAN CORPUSCULAR VOLUME 81 FL (80-99); PLATELET COUNT 246 K/UL (150-450); RED BLOOD COUNT 4.48 M/UL (4.70-6.10); RED CELL DISTRIBUTION WIDTH 17.5 % (11.6-14.8); WHITE BLOOD COUNT 21.8 K/UL (4.8-10.8)
[2018-02-27 07:52] LABS: ANION GAP 13 mmol/L (5-15); BLOOD UREA NITROGEN 127 mg/dL (7-18); CALCIUM 9.6 MG/DL (8.5-10.1); CARBON DIOXIDE 31 MMOL/L (21-32); CHLORIDE 104 MMOL/L (98-107); CREATININE 3.8 MG/DL (0.55-1.30); SODIUM 148 MMOL/L (136-145)
[2018-02-27 08:00] VITALS: BP 122/64
[2018-02-27] MEDS: Breo Ellipta 100/25mcg - 14 dose INH SCH (09:07)
[2018-02-27] MEDS: Carvedilol 25mg Tab ORAL SCH (09:48)
[2018-02-27] MEDS: sitaGLIPtin 25mg tab ORAL SCH (09:48)
[2018-02-27] MEDS: Amiodarone 200mg tab ORAL SCH (09:48)
[2018-02-27] MEDS: Miralax 17gm pkt ORAL SCH (09:49)
--- NOTE | 2018-02-27 11:07 | Nephrology Progress Note ---
Assessment/Plan Problem List: (1) ARF (acute renal failure) Assessment: no change urine sodium prerenal (2) Cardiomegaly (3) Hypokalemia (4) Malnutrition Plan Replete K IVF follow labs Nutritional eval Discussed with RN Subjective Subjective opens eyes Objective Objective Last 24 Hour Vital Signs Date Time Temp Pulse Resp B/P (MAP) Pulse Ox O2 Delivery O2 Flow Rate FiO2 02/27/18 09:48 103 122/64 02/27/18 09:08 103 18 97 Nasal Cannula 2.0 28 02/27/18 09:00 Nasal Cannula 2.0 02/27/18 08:00 98.2 91 18 122/64 (83) 95 02/27/18 07:35 86 02/27/18 04:00 97.9 81 20 104/46 (65) 98 02/27/18 04:00 94 02/27/18 00:00 77 02/27/18 00:00 98.6 90 20 108/64 (79) 97 02/26/18 21:19 97 124/70 02/26/18 21:00 Nasal Cannula 2.0 02/26/18 20:00 83 02/26/18 20:00 98.6 97 20 124/70 (88) 94 02/26/18 16:00 98.8 20 126/56 (79) 96 02/26/18 16:00 84 02/26/18 12:00 97.9 82 21 105/58 (74) 95 02/26/18 12:00 80 Intake and Output 02/26/18 02/27/18 18:59 06:59 Intake Total 850 ml 360 ml Output Total 300 ml 485 ml Balance 550 ml -125 ml Intake Oral 600 ml 60 ml IV Total 250 ml 300 ml Output Urine Total 300 ml 485 ml # Bowel Movements 1 1 Laboratory Tests 02/27/18 06:50: White Blood Count 21.8H, Red Blood Count 4.48L, Hemoglobin 11.8L, Hematocrit 36.5L, Mean Corpuscular Volume 81, Mean Corpuscular Hemoglobin 26.4L, Mean Corpuscular Hemoglobin Concent 32.5, Red Cell Distribution Width 17.5H, Platelet Count 246, Mean Platelet Volume 8.1, Neutrophils (%) (Auto) , Lymphocytes (%) (Auto) , Monocytes (%) (Auto) , Eosinophils (%) (Auto) , Basophils (%) (Auto) , Differential Total Cells Counted 100, Neutrophils % ( Manual) 82H, Lymphocytes % (Manual) 7L, Monocytes % (Manual) 11H, Eosinophils % (Manual) 0, Basophils % (Manual) 0, Band Neutrophils 0, Platelet Estimate Adequate, Platelet Morphology Normal, Hypochromasia 1+, Anisocytosis 1+, Sodium Level 148H, Potassium Level 3.0L, Chloride Level 104, Carbon Dioxide Level 31, Anion Gap 13, Blood Urea Nitrogen 127H, Creatinine 3.8H, Estimat Glomerular Filtration Rate 15.9, Glucose Level 295H, Calcium Level 9.6, Magnesium Level 3.0H Height (Feet): 6 Height (Inches): 0.00 Weight (Pounds): 192 Cardiovascular: normal rate Respiratory/Chest: lungs clear Extremities: other - no edema Isacc Ryder MD Feb 27, 2018 11:07
[2018-02-27 12:00] VITALS: BP 108/74
[2018-02-27] MEDS ORDERED: Potassium Chloride 10 MEQ in D5 1/2NS 1,000 ML IV SCH (12:00)
--- NOTE | 2018-02-27 12:42 | Urology Progress Note ---
Assessment/Plan Assessment/Plan 1. Gross hematuria, presumably secondary to Bee trauma. 2. Urinary retention. 3. BPH history. 4. Probable neurogenic bladder. 5. Pyuria. 6. Proteinuria. 7. Renal insufficiency, acute on chronic. 8. Renal cyst. keep bee indwelling cath hand irrigated and do PRN cont with proscar and abx cysto later monitor renal fxn f/u on urine cx Subjective Allergies: Coded Allergies: No Known Allergies (Unverified , 02/25/18) Subjective all noted, confused Objective Last 24 Hour Vital Signs Date Time Temp Pulse Resp B/P (MAP) Pulse Ox O2 Delivery O2 Flow Rate FiO2 02/27/18 09:48 103 122/64 02/27/18 09:08 103 18 97 Nasal Cannula 2.0 28 02/27/18 09:08 103 18 97 Nasal Cannula 2.0 28 02/27/18 09:00 Nasal Cannula 2.0 02/27/18 08:00 98.2 91 18 122/64 (83) 95 02/27/18 07:35 86 02/27/18 04:00 97.9 81 20 104/46 (65) 98 02/27/18 04:00 94 02/27/18 00:00 77 02/27/18 00:00 98.6 90 20 108/64 (79) 97 02/26/18 21:19 97 124/70 02/26/18 21:00 Nasal Cannula 2.0 02/26/18 20:00 83 02/26/18 20:00 98.6 97 20 124/70 (88) 94 02/26/18 16:00 98.8 20 126/56 (79) 96 02/26/18 16:00 84 Intake and Output 02/26/18 02/27/18 18:59 06:59 Intake Total 850 ml 360 ml Output Total 300 ml 485 ml Balance 550 ml -125 ml Intake Oral 600 ml 60 ml IV Total 250 ml 300 ml Output Urine Total 300 ml 485 ml # Bowel Movements 1 1 Microbiology Date/Time Source Procedure Growth Status 02/25/18 09:40 Blood Blood Culture - Preliminary NO GROWTH AFTER 24 HOURS Resulted 02/25/18 12:00 Nasal Nares MRSA Culture - Final NO METHICILLIN RESISTANT STAPH AUREUS... Complete 02/25/18 14:26 Indwelling Cath Urine Culture - Preliminary NO GROWTH AFTER 24 HOURS Resulted 02/25/18 12:00 Rectum - Final NO CARBAPENEM-RESISTANT ENTEROBACTERI... Complete Current Medications Medications (Trade) Dose Ordered Sig/Jessica Route PRN Reason Start Time Stop Time Status Last Admin Dose Admin Amiodarone HCl (Cordarone) 200 mg DAILY ORAL 02/26/18 09:00 03/28/18 08:59 02/27/18 09:48 Atorvastatin Calcium (Lipitor) 80 mg BEDTIME ORAL 02/25/18 21:00 03/27/18 20:59 02/26/18 20:34 Carvedilol (Coreg) 25 mg EVERY 12 HOURS ORAL 02/25/18 21:00 03/27/18 20:59 02/27/18 09:48 Ceftriaxone Sodium 1 gm/ Dextrose 50 ml @ 100 mls/hr Q24H IVPB 02/26/18 13:00 03/05/18 12:59 02/26/18 13:50 Dextrose (Dextrose 50%) 25 ml Q30M PRN IV Hypoglycemia 02/25/18 16:00 03/27/18 12:59 Dextrose (Dextrose 50%) 50 ml Q30M PRN IV Hypoglycemia 02/25/18 16:00 03/27/18 12:59 Doxycycline Hyclate 100 mg/ Dextrose 100 ml @ 100 mls/hr Q12HR IV 02/25/18 21:00 03/04/18 20:59 02/27/18 09:47 Finasteride (Proscar) 5 mg DAILY ORAL 02/25/18 21:00 03/27/18 20:59 02/27/18 09:48 Fluticasone/ Vilanterol (Breo Ellipta 100/25) 1 puff DAILY INH 02/26/18 09:00 03/28/18 08:59 02/27/18 09:07 Gabapentin (Neurontin) 300 mg BEDTIME ORAL 02/25/18 21:00 03/27/18 20:59 02/26/18 20:33 Haloperidol Lactate (Haldol) 5 mg Q6H PRN IM Agitation 02/25/18 16:45 03/27/18 10:44 Insulin Aspart (NovoLOG) BEFORE MEALS AND HS SUBQ 02/25/18 16:30 03/27/18 16:29 02/27/18 11:48 Metronidazole 100 ml @ 100 mls/hr Q8HR IVPB 02/26/18 14:00 03/05/18 13:59 02/27/18 05:49 Polyethylene Glycol (Miralax) 17 gm DAILY ORAL 02/26/18 09:00 03/28/18 08:59 02/27/18 09:49 Potassium Chloride 10 meq/ Dextrose/Sodium Chloride 1,005 ml @ 75 mls/hr [id number] IV 02/27/18 12:00 03/29/18 11:59 Quetiapine Fumarate (SEROquel) 12.5 mg Q12HR ORAL 02/26/18 21:00 03/28/18 20:59 02/27/18 09:48 Quetiapine Fumarate (SEROquel) 12.5 mg Q4H PRN ORAL anxiety 02/26/18 12:00 03/28/18 11:59 Sitagliptin Phosphate (Januvia) 25 mg DAILY ORAL 02/26/18 09:00 03/28/18 08:59 02/27/18 09:48 Laboratory Tests 02/27/18 06:50: White Blood Count 21.8H, Red Blood Count 4.48L, Hemoglobin 11.8L, Hematocrit 36.5L, Mean Corpuscular Volume 81, Mean Corpuscular Hemoglobin 26.4L, Mean Corpuscular Hemoglobin Concent 32.5, Red Cell Distribution Width 17.5H, Platelet Count 246, Mean Platelet Volume 8.1, Neutrophils (%) (Auto) , Lymphocytes (%) (Auto) , Monocytes (%) (Auto) , Eosinophils (%) (Auto) , Basophils (%) (Auto) , Differential Total Cells Counted 100, Neutrophils % ( Manual) 82H, Lymphocytes % (Manual) 7L, Monocytes % (Manual) 11H, Eosinophils % (Manual) 0, Basophils % (Manual) 0, Band Neutrophils 0, Platelet Estimate Adequate, Platelet Morphology Normal, Hypochromasia 1+, Anisocytosis 1+, Sodium Level 148H, Potassium Level 3.0L, Chloride Level 104, Carbon Dioxide Level 31, Anion Gap 13, Blood Urea Nitrogen 127H, Creatinine 3.8H, Estimat Glomerular Filtration Rate 15.9, Glucose Level 295H, Calcium Level 9.6, Magnesium Level 3.0H Height (Feet): 6 Height (Inches): 0.00 Weight (Pounds): 192 Objective bee indwelling, zayda urine Bamshad,Jose Michael MD Feb 27, 2018 12:42
[2018-02-27] MEDS: cefTRIAXone 1 GM in D5W 50 ML IVPB SCH (13:15)
--- NOTE | 2018-02-27 13:27 | Diagnostic Imaging Report ---
Indication: Abdominal pain and distention Technique: Supine view of the abdomen Comparison: none Findings: Bowel gas pattern is unremarkable. No unusual masses or calcifications. There are mild degenerative changes of the lumbar spine Impression: No acute process
--- NOTE | 2018-02-27 13:34 | Infectious Diseases Prog Note ---
Assessment/Plan Assessment/Plan ASSESSMENT AND PLAN: 1. sepsis, ams, fever, ? uti, + c.diff. risk, leukocytosis, chest x-ray with pvc - rocephin and flagyl, discontinue doxycycline - check c.diff., monitor labs - cultures negative to date, f/u on cultures - will f/u - patient more alert today 2. ams - more alert today 3. The patient has a history of chronic renal failure. Currently, he is in acute renal failure. 4. Anemia. 5. History of CHF, chronic and systolic diastolic. 6. Weakness. 7. History of CAD. 8. History of non STEMI. 9. History of CABG. 10. Hypertension. 11. Paroxysmal atrial fibrillation. 12. Dyslipidemia. 13. Diabetes. 14. Depression. 15. No known allergies. 16. Social history negative. 17. Family history noncontributory. 18. MAR was noted. 19. Case was discussed with RN. 20. Continue treatment per primary consultants. 21. Notes and records were noted. 22. Orders were noted and entered. Subjective Constitutional: Denies: fever HEENT: Denies: congestion Respiratory: Denies: shortness of breath, productive cough Breasts: Denies: no symptoms Cardiovascular: Denies: chest pain Gastrointestinal/Abdominal: Denies: nausea, vomiting, diarrhea Genitourinary: Reports: other - + bee Neurologic: Denies: headache Psychiatric: Denies: depression Skin: Denies: rash Hematologic: Denies: bleeding Musculoskeletal: Denies: pain Allergies: Coded Allergies: No Known Allergies (Unverified , 02/25/18) Objective Vital Signs Last 24 Hour Vital Signs Date Time Temp Pulse Resp B/P (MAP) Pulse Ox O2 Delivery O2 Flow Rate FiO2 02/27/18 09:48 103 122/64 02/27/18 09:08 103 18 97 Nasal Cannula 2.0 28 02/27/18 09:08 103 18 97 Nasal Cannula 2.0 28 02/27/18 09:00 Nasal Cannula 2.0 02/27/18 08:00 98.2 91 18 122/64 (83) 95 02/27/18 07:35 86 02/27/18 04:00 97.9 81 20 104/46 (65) 98 02/27/18 04:00 94 02/27/18 00:00 77 02/27/18 00:00 98.6 90 20 108/64 (79) 97 02/26/18 21:19 97 124/70 02/26/18 21:00 Nasal Cannula 2.0 02/26/18 20:00 83 02/26/18 20:00 98.6 97 20 124/70 (88) 94 02/26/18 16:00 98.8 20 126/56 (79) 96 02/26/18 16:00 84 Height (Feet): 6 Height (Inches): 0.00 Weight (Pounds): 192 General Appearance: no acute distress HEENT: normocephalic, atraumatic, anicteric, mucous membranes moist Respiratory/Chest: crackles/rales, rhonchi - bilaterally Cardiovascular: normal rate, regular rhythm, no gallop/murmur, no JVD Abdomen: normal bowel sounds, soft, non tender, no organomegaly, non distended Genitourinary: other - + bee - urine fairly clear Extremities: no cyanosis Skin: no rash 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 Prior cardiac surgery with median sternotomy and evidence of prior CABG. AICD unchanged in position. There is mild central pulmonary vascular congestion without evidence of alveolar edema. No new focal airspace consolidation. Osseous structures stable. Impression: Cardiomegaly with mild central pulmonary vascular congestion. CT scan of abdomen and pelvis: Impression: Limited assessment of the GI tract, due to lack of enteric contrast administration Mild to moderate rectal distention by stool, could indicate rectal fecal impaction. There is some rectal wall thickening and presacral edema which could indicate stercoral colitis High attenuation material within the bladder lumen likely indicates blood given stated clinical history of hematuria. No definite renal or ureteral abnormality to indicate source of such. Prostatomegaly Incidental finding right lower pole renal lesion, too small to characterize, most likely benign simple cortical cyst. Borderline splenomegaly Cardiomegaly Colonic diverticulosis. No evidence of diverticulitis Other findings as noted, including degenerative spondylosis, compressive pulmonary atelectatic changes, coronary artery calcifications, pacemaker, likely mitral valve Microbiology Date/Time Source Procedure Growth Status 02/25/18 09:40 Blood Blood Culture - Preliminary NO GROWTH AFTER 24 HOURS Resulted 02/25/18 09:30 Blood Blood Culture - Preliminary NO GROWTH AFTER 24 HOURS Resulted 02/25/18 12:00 Nasal Nares MRSA Culture - Final NO METHICILLIN RESISTANT STAPH AUREUS... Complete 02/25/18 14:26 Indwelling Cath Urine Culture - Preliminary NO GROWTH AFTER 24 HOURS Resulted 02/25/18 12:00 Rectum - Final NO CARBAPENEM-RESISTANT ENTEROBACTERI... Complete 02/25/18 12:00 Rectum VRE Culture - Final NO VANCOMYCIN RESISTANT ENTEROCOCCUS ... Complete Laboratory Tests Test 02/27/18 06:50 White Blood Count 21.8 K/UL (4.8-10.8) H Red Blood Count 4.48 M/UL (4.70-6.10) L Hemoglobin 11.8 G/DL (14.2-18.0) L Hematocrit 36.5 % (42.0-52.0) L Mean Corpuscular Volume 81 FL (80-99) Mean Corpuscular Hemoglobin 26.4 PG (27.0-31.0) L Mean Corpuscular Hemoglobin Concent 32.5 G/DL (32.0-36.0) Red Cell Distribution Width 17.5 % (11.6-14.8) H Platelet Count 246 K/UL (150-450) Mean Platelet Volume 8.1 FL (6.5-10.1) Neutrophils (%) (Auto) % (45.0-75.0) Lymphocytes (%) (Auto) % (20.0-45.0) Monocytes (%) (Auto) % (1.0-10.0) Eosinophils (%) (Auto) % (0.0-3.0) Basophils (%) (Auto) % (0.0-2.0) Differential Total Cells Counted 100 Neutrophils % (Manual) 82 % (45-75) H Lymphocytes % (Manual) 7 % (20-45) L Monocytes % (Manual) 11 % (1-10) H Eosinophils % (Manual) 0 % (0-3) Basophils % (Manual) 0 % (0-2) Band Neutrophils 0 % (0-8) Platelet Estimate Adequate Platelet Morphology Normal Hypochromasia 1+ Anisocytosis 1+ Sodium Level 148 MMOL/L (136-145) H Potassium Level 3.0 MMOL/L (3.5-5.1) L Chloride Level 104 MMOL/L (98-107) Carbon Dioxide Level 31 MMOL/L (21-32) Anion Gap 13 mmol/L (5-15) Blood Urea Nitrogen 127 mg/dL (7-18) H Creatinine 3.8 MG/DL (0.55-1.30) H Estimat Glomerular Filtration Rate 15.9 mL/min (>60) Glucose Level 295 MG/DL (74-106) H Calcium Level 9.6 MG/DL (8.5-10.1) Magnesium Level 3.0 MG/DL (1.8-2.4) H Current Medications Medications (Trade) Dose Ordered Sig/Jessica Route PRN Reason Start Time Stop Time Status Last Admin Dose Admin Amiodarone HCl (Cordarone) 200 mg DAILY ORAL 02/26/18 09:00 03/28/18 08:59 02/27/18 09:48 Atorvastatin Calcium (Lipitor) 80 mg BEDTIME ORAL 02/25/18 21:00 03/27/18 20:59 02/26/18 20:34 Carvedilol (Coreg) 25 mg EVERY 12 HOURS ORAL 02/25/18 21:00 03/27/18 20:59 02/27/18 09:48 Ceftriaxone Sodium 1 gm/ Dextrose 50 ml @ 100 mls/hr Q24H IVPB 02/26/18 13:00 03/05/18 12:59 02/26/18 13:50 Dextrose (Dextrose 50%) 25 ml Q30M PRN IV Hypoglycemia 02/25/18 16:00 03/27/18 12:59 Dextrose (Dextrose 50%) 50 ml Q30M PRN IV Hypoglycemia 02/25/18 16:00 03/27/18 12:59 Doxycycline Hyclate 100 mg/ Dextrose 100 ml @ 100 mls/hr Q12HR IV 02/25/18 21:00 03/04/18 20:59 02/27/18 09:47 Finasteride (Proscar) 5 mg DAILY ORAL 02/25/18 21:00 03/27/18 20:59 02/27/18 09:48 Fluticasone/ Vilanterol (Breo Ellipta 100/25) 1 puff DAILY INH 02/26/18 09:00 03/28/18 08:59 02/27/18 09:07 Gabapentin (Neurontin) 300 mg BEDTIME ORAL 02/25/18 21:00 03/27/18 20:59 02/26/18 20:33 Haloperidol Lactate (Haldol) 5 mg Q6H PRN IM Agitation 02/25/18 16:45 03/27/18 10:44 Insulin Aspart (NovoLOG) BEFORE MEALS AND HS SUBQ 02/25/18 16:30 03/27/18 16:29 02/27/18 11:48 Metronidazole 100 ml @ 100 mls/hr Q8HR IVPB 02/26/18 14:00 03/05/18 13:59 02/27/18 05:49 Polyethylene Glycol (Miralax) 17 gm DAILY ORAL 02/26/18 09:00 03/28/18 08:59 02/27/18 09:49 Potassium Chloride 10 meq/ Dextrose/Sodium Chloride 1,005 ml @ 75 mls/hr [id number] IV 02/27/18 12:00 03/29/18 11:59 02/27/18 13:03 Quetiapine Fumarate (SEROquel) 12.5 mg Q12HR ORAL 02/26/18 21:00 03/28/18 20:59 02/27/18 09:48 Quetiapine Fumarate (SEROquel) 12.5 mg Q4H PRN ORAL anxiety 02/26/18 12:00 03/28/18 11:59 Sitagliptin Phosphate (Januvia) 25 mg DAILY ORAL 02/26/18 09:00 03/28/18 08:59 02/27/18 09:48 Edith Jeffery MD Feb 27, 2018 13:34
[2018-02-27 16:00] VITALS: BP 123/70
--- NOTE | 2018-02-27 18:26 | Discharge Instructions ---
Discharge Instructions Discharge Instructions Follow up with: HOSPICE Services at Discharge: hospice Additional Diet Information: nectar thick soup w/ nectar thick liquid Activity: bedrest For Congestive Heart Failure Reminder Report to your physician any weight gain of 5 pounds or more in one week. Sebastian Zimmerman MD Feb 27, 2018 18:26
--- NOTE | 2018-02-27 18:29 | Discharge Summary ---
Discharge Summary Hospital Course Date of Admission Feb 25, 2018 at 08:31 Date of Discharge Admitting Diagnosis Encephalopathy, hematuria HPI Mason Tilley is a 67 year old male who was admitted on Feb 25, 2018 at 08: 31 for Encephalopathy, Hematuria Discharge Discharge Disposition Patient was discharged to Discharge Instructions Discharge Instructions Follow up with: HOSPICE Services Upon Discharge: hospice Additional Diet Information: nectar thick soup w/ nectar thick liquid Activity: Sebastian Tijerina MD Feb 27, 2018 18:29
--- NOTE | 2018-02-27 18:41 | Discharge Summary ---
Discharge Summary Hospital Course Date of Admission Feb 25, 2018 at 08:31 Date of Discharge Admitting Diagnosis Encephalopathy, hematuria HPI Mason Tilley is a 67 year old male who was admitted on Feb 25, 2018 at 08: 31 for Encephalopathy, Hematuria dictated [id number] Discharge Condition Upon Discharge: grave Discharge Disposition Patient was discharged to SNF with hospice Discharge Instructions Discharge Instructions Follow up with: HOSPICE Services Upon Discharge: hospice Additional Diet Information: nectar thick soup w/ nectar thick liquid Activity: Sebastian Tijerina MD Feb 27, 2018 18:41
[2018-02-27 20:00] VITALS: BP 114/73
--- NOTE | 2018-02-27 20:45 | Discharge Summary ---
DATE OF ADMISSION: 02/25/2018 DATE OF DISCHARGE: 02/27/2018 PROCEDURES DONE HERE: None significant. FINDINGS: None. BRIEF HOSPITAL COURSE AND SUMMARY: This is an unfortunate 67-year-old male with history of acute congestive heart failure with an ejection fraction of 11%, coronary artery disease status post coronary artery bypass graft, history of defibrillator placement, hypertension, uncontrolled diabetes, cardiorenal, NSTEMI with recent cardiac catheterization in November 2017 with PCI, who presents to emergency room for altered mental status. The patient has also had a [place] for urinary retention secondary to BPH with gross hematuria. He was seen by Urology for hematuria and had manual irrigation of his [place] with a significant improvement in hematuria. The patient was seen by Infectious Disease for leukocytosis with unremarkable workup including blood culture and urine culture showing no growth. The patient had a CT abdomen/pelvis showing no abscess. The patient also was seen by Nephrology for acute on chronic renal failure secondary to likely prerenal from excessive diuretics in the setting of being NPO. His diuretics were discontinued and patient was given gentle intravenous fluids without significant improvement. Given the patient's very poor prognosis, a discussion was held with his durable power of senior attorney regarding hospice and his durable power of senior attorney agreed. He will go back to his retirement facility with home hospice. The patient did fail his swallow studies mainly because of his encephalopathy, however, he can have food for oral gratification. DISCHARGE CONDITION: Fair. DISCHARGE INSTRUCTIONS: The patient being discharged to a retirement facility with hospice. The patient to have thickened soups and liquids for oral gratification only. All diuretics to be held. Sebastian Zimmerman MD DR: THAO JOB#: [id number] CC:
--- NOTE | 2018-02-27 20:52 | General Progress Note ---
Assessment/Plan Problem List: (1) Encephalopathy ICD Codes: G93.40 - Encephalopathy, unspecified SNOMED: [id number] Assessment/Plan The pt was provided ro/st Seroquel 25mg qhs Seroquel prn Subjective Neurologic/Psychiatric: Reports: anxiety, depressed, emotional problems Allergies: Coded Allergies: No Known Allergies (Unverified , 02/25/18) Subjective the pt has waxing and waning of consciousness Objective Last 24 Hour Vital Signs Date Time Temp Pulse Resp B/P (MAP) Pulse Ox O2 Delivery O2 Flow Rate FiO2 02/27/18 20:00 98.4 88 19 114/73 (87) 96 02/27/18 20:00 86 02/27/18 16:00 98.3 83 20 123/70 (87) 97 02/27/18 15:20 93 02/27/18 12:00 98.4 96 20 108/74 (85) 98 02/27/18 11:53 88 02/27/18 09:48 103 122/64 02/27/18 09:08 103 18 97 Nasal Cannula 2.0 28 02/27/18 09:08 103 18 97 Nasal Cannula 2.0 28 02/27/18 09:00 Nasal Cannula 2.0 02/27/18 08:00 98.2 91 18 122/64 (83) 95 02/27/18 07:35 86 02/27/18 04:00 97.9 81 20 104/46 (65) 98 02/27/18 04:00 94 02/27/18 00:00 77 02/27/18 00:00 98.6 90 20 108/64 (79) 97 02/26/18 21:19 97 124/70 02/26/18 21:00 Nasal Cannula 2.0 Intake and Output 02/26/18 02/27/18 19:00 07:00 Intake Total 850 ml 360 ml Output Total 300 ml 485 ml Balance 550 ml -125 ml Intake Oral 600 ml 60 ml IV Total 250 ml 300 ml Output Urine Total 300 ml 485 ml # Bowel Movements 1 1 Laboratory Tests 02/27/18 06:50: White Blood Count 21.8H, Red Blood Count 4.48L, Hemoglobin 11.8L, Hematocrit 36.5L, Mean Corpuscular Volume 81, Mean Corpuscular Hemoglobin 26.4L, Mean Corpuscular Hemoglobin Concent 32.5, Red Cell Distribution Width 17.5H, Platelet Count 246, Mean Platelet Volume 8.1, Neutrophils (%) (Auto) , Lymphocytes (%) (Auto) , Monocytes (%) (Auto) , Eosinophils (%) (Auto) , Basophils (%) (Auto) , Differential Total Cells Counted 100, Neutrophils % ( Manual) 82H, Lymphocytes % (Manual) 7L, Monocytes % (Manual) 11H, Eosinophils % (Manual) 0, Basophils % (Manual) 0, Band Neutrophils 0, Platelet Estimate Adequate, Platelet Morphology Normal, Hypochromasia 1+, Anisocytosis 1+, Sodium Level 148H, Potassium Level 3.0L, Chloride Level 104, Carbon Dioxide Level 31, Anion Gap 13, Blood Urea Nitrogen 127H, Creatinine 3.8H, Estimat Glomerular Filtration Rate 15.9, Glucose Level 295H, Calcium Level 9.6, Magnesium Level 3.0H Height (Feet): 6 Height (Inches): 0.00 Weight (Pounds): 192 General Appearance: lethargic, confused, agitated Dwight Rodriguez MD Feb 27, 2018 20:52
== END 2018-02-27 21:51 | DRG 871 ==
LOC: EDBD 07:56 → EMR 08:30 → 4E 08:31 → EDBEDREQ 08:52 → 2E 15:04
DX: A41.9 Sepsis, unspecified organism (principal); G93.41 Metabolic encephalopathy; N39.0 Urinary tract infection, site not specified; N17.9 Acute kidney failure, unspecified; I13.0 Hypertensive heart and chronic kidney disease with heart failure and stage 1 through stage 4 chronic kidney disease, or unspecified chronic kidney disease; N18.4 Chronic kidney disease, stage 4 (severe); I50.42 Chronic combined systolic (congestive) and diastolic (congestive) heart failure; N40.1 Benign prostatic hyperplasia with lower urinary tract symptoms; R33.8 Other retention of urine; I25.10 Atherosclerotic heart disease of native coronary artery without angina pectoris; Z95.1 Presence of aortocoronary bypass graft; I25.2 Old myocardial infarction; E11.22 Type 2 diabetes mellitus with diabetic chronic kidney disease; Z95.810 Presence of automatic (implantable) cardiac defibrillator; F32.9 Major depressive disorder, single episode, unspecified; I48.0 Paroxysmal atrial fibrillation; E78.5 Hyperlipidemia, unspecified; K76.1 Chronic passive congestion of liver; M10.9 Gout, unspecified; Z79.01 Long term (current) use of anticoagulants; Z66 Do not resuscitate; Z95.5 Presence of coronary angioplasty implant and graft; R31.0 Gross hematuria; Z79.02 Long term (current) use of antithrombotics/antiplatelets; Z79.82 Long term (current) use of aspirin; N31.9 Neuromuscular dysfunction of bladder, unspecified; N28.1 Cyst of kidney, acquired; E87.6 Hypokalemia
CPT/HCPCS: 36415; 70450; 71045; 74018; 74176; 76770; 80048; 80053; 81003; 82248; 82550; 82553; 82570; 82962; 83605; 83735; 84100; 84300; 84484; 85007; 85025; 85610; 85730; 87040; 87081; 87086; 93005; 94640; 96365; 96372; 99285; J1815; J3490; J8499